=== PATIENT | male | born 1990 | race Caucasian/White ===

== ENCOUNTER 2021-02-20 17:18 | Emergency (ER) | payer OTHER, SELFPAY ==
--- NOTE | ~2021-02-20 | XR_ITS ---
EXAMINATION: XR chest 1V portable DATE: 02/20/2021 17:43 INDICATION: Fever and shortness of breath TECHNIQUE: frontal view of the chest was obtained. COMPARISON: None FINDINGS: Subtle airspace opacity in the right lower lung zone. Mild linear discoid atelectasis at the lateral left lower lung zone. No pulmonary edema, pleural effusion or pneumothorax. The cardiomediastinal paty houette is normal. Visualized bones and soft tissues are unremarkable. IMPRESSION: 1. Opacities in the right lower lung zones suspicious for pneumonia. Reviewed, dictated and finalized at location A. [employer] INST[employer]ER
[2021-02-20 17:29] VITALS: BP 133/80; PULSE 105; RESP 18; TEMP 38.5; O2SAT 95
--- NOTE | 2021-02-20 17:36 | ED.URI ---
HPI - URI/Sore Throat General Chief Complaint: Upper Respiratory Infection Stated Complaint: COVID +, Fever, SOB, Tightness in chest Source: patient Mode of arrival: ambulatory Limitations: no limitations History of Present Illness HPI Narrative: this is a 30-year-old male presents some vaccinated gentleman that is COVID positive initially went to urgent care and was told to come to the emergency department he has a fever of 101, feels like there are some chest tightness with nasal congestion and nonproductive cough with some no abdominal pain no diarrhea constipation. Patient did take ibuprofen prior to coming to the emergency department. MD elicited complaint: fever and nasal congestion Pertinent past history: other ( COVID positive) Onset (ago): day(s) Consistency: constant Severity: mild Exacerbating factors: nothing Relieving factors: nothing Related Data Allergies Allergy/AdvReac Type Severity Reaction Status Date / Time No Known Allergies Allergy Verified 02/20/21 17:28 Review of Systems Review of Systems: All systems reviewed & are unremarkable except as noted in HPI and below PMFSH Past Medical History Medical History Patient denies medical problems Exam Const: General: no acute distress and alert Orientation/consciousness: patient oriented x3 Limitations: altered mental status HENMT: Head: normal to inspection Eyes: Conjunctivae: conjunctivae normal Pupils: Equal, round and reactive pupils present Neck: Neck: normal visual inspection and no lymphadenopathy Chest: Chest palpation & inspection: normal inspection of the chest Resp: Effort & Inspection: normal respiratory effort Cardio: Rate: regular rate Rhythm: regular rhythm GI: GI Palp: Yes Soft to palpation Percussion: Yes normal to percussion Urinary Catheter: Urinary Catheter: patent and draining Skin: General skin exam: normal color Rashes: no rashes Neuro: General: patient oriented x3 Psych: Mental Status: mental status grossly normal Course Course Emergency Course: patient received IV fluids chest x-ray and labs reviewed with patient albuterol puffer was was given patient advised to go home rest drink plenty of fluids Tylenol or Motrin and use inhaler that was prescribed. Vital Signs Vital signs: Vital Signs Temperature 38.5 C H 02/20/21 17:29 Pulse Rate 105 H 02/20/21 17:29 Respiratory Rate 18 02/20/21 17:29 Blood Pressure 133/80 02/20/21 17:29 Pulse Oximetry 95 02/20/21 17:29 Temperature 37.3 C 02/20/21 18:15 Pulse Rate 85 02/20/21 18:15 Respiratory Rate 18 02/20/21 18:15 Blood Pressure 133/80 02/20/21 17:29 Pulse Oximetry 95 02/20/21 18:15 MDM - URI/Sore Throat Lab Data Result diagrams: 02/20/21 17:52 02/20/21 17:52 Labs: Lab Results 02/20/21 02/20/21 Range/Units 17:52 17:52 WBC 4.5 L (4.8-10.8) K/mm3 RBC 4.88 (4.70-6.10) M/mm3 Hgb 14.3 (14.0-18.0) g/dL Hct 42.7 (40.0-54.0) % MCV 87.5 (78.0-102.0) fL MCH 29.3 (27.0-31.0) pg MCHC 33.5 (32.0-36.0) g/dL RDW 12.3 (11.6-14.4) % Plt Count 130 L (150-420) K/mm3 MPV 10.6 (8.7-11.0) fl Immature Gran % (Auto) 0.4 H (0.0-0.0) % Neut % (Auto) 78.8 H (50.0-70.0) % Lymph % (Auto) 16.4 L (18.0-42.0) % [place] % (Auto) 4.4 (2.0-11.0) % Eos % (Auto) 0.0 L (1.0-6.0) % Baso % (Auto) 0.0 (0.0-1.0) % Lymph # (Auto) 0.74 L (1.10-4.50) K/mm3 [place] # (Auto) 0.20 (0.10-0.90) K/mm3 Eos # (Auto) 0.00 L (0.02-0.50) K/mm3 Baso # (Auto) 0.00 (0.00-0.10) K/mm3 Abs Immat Gran (auto) 0.02 H (0.00-0.00) K/mm3 Absolute Neuts (auto) 3.6 (1.7-7.2) K/mm3 Absolute Nucleated RBC 0.00 (0.00-0.00) K/mm3 Nucleated RBC % 0.0 (0-0.0) % % Immature Plt Fraction 2.6 (1.0-7.0) % Sodium 141 (136-145) mmol/L Potassium 3.8 (3.5-5.1) mmol/L Chloride 105 (98-108) mmol/L Carbon Di
[2021-02-20] MEDS: SODIUM CHLORIDE 0.9% IV 1,000 ML 999 ML IV CONT (17:46)
[2021-02-20] MEDS: ACETAMINOPHEN 500 MG TABLET 1000 MG PO (17:46)
[2021-02-20 17:57] LABS: Hematocrit 42.7 % (40.0-54.0); Hemoglobin 14.3 g/dL (14.0-18.0); Immature Granulocyte Absolute 0.02 K/mm3 (0.00-0.00); Immature Granulocyte Percent A 0.4 % (0.0-0.0); Immature Platelet Fraction Pct 2.6 % (1.0-7.0); Lymphocytes Absolute Auto 0.74 K/mm3 (1.10-4.50); Lymphocytes Percent Auto 16.4 % (18.0-42.0); Mean Corpuscular HGB Conc 33.5 g/dL (32.0-36.0); Mean Corpuscular Hemoglobin 29.3 pg (27.0-31.0); Mean Corpuscular Volume 87.5 fL (78.0-102.0); Mean Platelet Volume 10.6 fl (8.7-11.0); Monocytes Percent Auto 4.4 % (2.0-11.0); Neutrophils Absolute Auto 3.6 K/mm3 (1.7-7.2); Neutrophils Percent Auto 78.8 % (50.0-70.0); Platelet Count Result 130 K/mm3 (150-420); Red Blood Count 4.88 M/mm3 (4.70-6.10); Red Cell Distribution Width 12.3 % (11.6-14.4); White Blood Count 4.5 K/mm3 (4.8-10.8)
[2021-02-20 18:10] LABS: Alanine Aminotransferase 60 U/L (16-63); Albumin Level 3.3 g/dL (3.4-5.0); Alkaline Phosphatase 75 U/L (46-116); Anion Gap 7 mmol/L (8-16); Aspartate Amino Transferase 17 U/L (15-37); Bilirubin,Total 0.4 mg/dL (0.00-1.00); Blood Urea Nitrogen 19 mg/dL (7-18); Calcium 8.1 mg/dL (8.5-10.1); Carbon Dioxide 29 mmol/L (21-32); Chloride 105 mmol/L (98-108); Estimated CRCL calculation 110 ml/min; Estimated Glomerular Filt Rate > 60; Glucose 153 mg/dL (70-99); Osmolality Calculated 297 mOsm/kg (285-295); Potassium 3.8 mmol/L (3.5-5.1); Sodium 141 mmol/L (136-145); Total Protein 6.3 g/dL (6.4-8.2)
[2021-02-20] MEDS: ALBUTEROL SULFATE (*SP) INHALER 2 PUFF INHALATION (18:14)
[2021-02-20 18:15] VITALS: PULSE 85; RESP 18; TEMP 37.3; O2SAT 95
[2021-02-20] MEDS: levoFLOXacin 500 MG/D5W 100 ML 500 MG/100 ML BAG 100 MG IVPB (18:35)
[2021-02-20 18:36] VITALS: BP 119/68; PULSE 88; RESP 16; O2SAT 95
--- NOTE | 2021-02-20 19:03 | PC.NURSE ---
Report given to REBECCA Duong
[2021-02-20 19:39] VITALS: BP 113/75; PULSE 85; RESP 17; O2SAT 95
== END 2021-02-20 19:54 | disposition home or self-care (01) ==
PROVIDERS: Emergency Provider Emergency Medicine
DX: U07.1 COVID-19 (principal); J18.9 Pneumonia, unspecified organism
CPT/HCPCS: 36415; 71045; 80053; 85025; 85055; 96361; 96365; 99283; 99284; A9270; J1956; J7030

== ENCOUNTER 2021-02-22 11:15 | Outpatient (CLI) | payer OTHER, SELFPAY ==
--- NOTE | ~2021-02-22 | XR_ITS ---
XR chest 2V DATE: 02/22/2021 11:44 INDICATION: Covid 19 positive for one week. Shortness of breath, cough. Nausea and vomiting. TECHNIQUE: PA and lateral views COMPARISON: 02/20/2021 portable AP chest FINDINGS: Since 02/20/2021 there are patchy infiltrates scattered in the right upper, mid and lower l juliana and left lower lung, likely due to bilateral Covid pneumonia. No pleural effusion or pulmonary vascular congestion or pneumothorax. Normal heart size. Included skeletal structures are unremarkable. IMPRESSION: Patchy bilateral pulmonary infiltrates, right greater than left, new since 02/20/2021, kai ruiz due to Covid pneumonia Reviewed, dictated and finalized at location A. [employer] ADMINSTRATOR IMPRESSION: Patchy bilateral pulmonary infiltrates, right greater than left, ne w since 02/20/2021, likely due to Covid pneumonia
== END 2021-02-22 11:16 | disposition home or self-care (01) ==
LOC: CHSIMG 11:17
PROVIDERS: PCP Nurse Practitioner Family; Visit Provider Nurse Practitioner Family
DX: U07.1 COVID-19 (principal)
CPT/HCPCS: 71046

== ENCOUNTER 2021-02-22 16:56 | Inpatient (IN) | payer OTHER, SELFPAY ==
[2021-02-22] VITALS (7 sets, daily range): BP systolic 123–130; BP diastolic 71–89; PULSE 72–94; RESP 18–22; TEMP 37.1–38; O2SAT 92–96; BMI 31.2
[2021-02-22 17:49] LABS: Hematocrit 44.3 % (40.0-54.0); Hemoglobin 15.2 g/dL (14.0-18.0); Mean Corpuscular HGB Conc 34.3 g/dL (32.0-36.0); Mean Corpuscular Hemoglobin 29.6 pg (27.0-31.0); Mean Corpuscular Volume 86.2 fL (78.0-102.0); Mean Platelet Volume 10.2 fl (8.7-11.0); Platelet Count Result 126 K/mm3 (150-420); Red Blood Count 5.14 M/mm3 (4.70-6.10); Red Cell Distribution Width 12.2 % (11.6-14.4); White Blood Count 3.5 K/mm3 (4.8-10.8)
[2021-02-22 18:04] LABS: Alanine Aminotransferase 59 U/L (16-63); Albumin Level 3.4 g/dL (3.4-5.0); Alkaline Phosphatase 85 U/L (46-116); Anion Gap 7 mmol/L (8-16); Aspartate Amino Transferase 31 U/L (15-37); Bilirubin,Total 0.8 mg/dL (0.00-1.00); Blood Urea Nitrogen 12 mg/dL (7-18); Calcium 8.7 mg/dL (8.5-10.1); Carbon Dioxide 32 mmol/L (21-32); Chloride 97 mmol/L (98-108); Estimated Glomerular Filt Rate > 60; Glucose 126 mg/dL (70-99); Osmolality Calculated 283 mOsm/kg (285-295); Potassium 3.9 mmol/L (3.5-5.1); Sodium 136 mmol/L (136-145); Total Protein 6.8 g/dL (6.4-8.2)
[2021-02-22 18:18] LABS: Base Excess ABG 2.9 mmol/L (0-2); HCO3 ABG 24.2 mmol/L (23-29); Oxygen Content ABG 20.6 %vol (16.0-22.0); Oxygen Saturation ABG 94.4 % (95-97); Oxyhemoglobin 93.6 % (94-100); PCO2 ABG 28.7 mmHg (35-45); PO2 ABG 63.9 mmHg (80-90); Total Hemoglobin 15.7 g/dL (12.0-18.0); pH ABG 7.54 (7.35-7.45)
[2021-02-22 18:21] LABS: Device ROOM AIR; Modified Allen's Test Pass; Site Drawn RIGHT RADIAL
[2021-02-22 18:25] LABS: SARS-CoV-2 RNA PCR Positive (Negative)
[2021-02-22] MEDS: SODIUM CHLORIDE 0.9% IV 500 ML 999 ML IV CONT (18:26)
[2021-02-22] MEDS: ONDANSETRON INJ 4 MG/2 ML VIAL IV PUSH (18:28)
[2021-02-22 18:29] LABS: Band Neutrophils Percent 0 % (0-6); Basophils Percent Manual 0 % (0-1); Eosinophils Percent Manual 0 % (1-6); Lymphocytes Absolute Manual 0.45 K/mm3 (1.1-4.5); Lymphocytes Percent Manual 13 % (18-44); Monocytes Absolute Manual 0.21 K/mm3 (0.1-0.90); Monocytes Percent Manual 6 % (3-9); Neutrophils Absolute Manual 2.83 K/mm3 (1.3-6.7); Neutrophils Percent Manual 81 % (46-73); Platelet Estimate Adequate (Adequate)
[2021-02-22] MEDS: guaiFENesin 12 HR 600 MG TABCR PO (19:37)
--- NOTE | 2021-02-22 20:17 | ED.SOB ---
HPI - SOB/Dyspnea General Chief Complaint: Shortness of Breath/Dyspnea Stated Complaint: COVID +,vomiting Time Seen by Provider: 02/22/21 16:59 Source: patient and RN notes reviewed Mode of arrival: other (see nurses notes.) Limitations: no limitations History of Present Illness MD elicited complaint: shortness of breath and cough Onset (ago): day(s) (2) Timing: constant Severity: mild Exacerbating factors: nothing Relieving factors: oxygen Associated symptoms: denies other symptoms Treatment prior to arrival: oxygen Related Data Allergies Allergy/AdvReac Type Severity Reaction Status Date / Time No Known Allergies Allergy Verified 03/06/21 07:53 Review of Systems Review of Systems: All systems reviewed & are unremarkable except as noted in HPI and below PMFSH Past Medical History Medical History Hydrocele Patient denies medical problems Surgical History Surgical History H/O knee surgery History of tonsillectomy Social History Social History Smoking status: Former smoker Tobacco type: cigarettes Alcohol intake: unknown Substance use: unknown Substance use type: does not use Gender identity (if verbalized by the patient): Male Spiritual care concerns: No Exam Const: General: diaphoretic Orientation/consciousness: patient oriented x3 Limitations: no limitations HENMT: Head: normal to inspection Ears: external ears normal and TM's normal bilaterally General nose exam: Normal external nose present and Normal nares present Mouth: Yes lip normal and Yes moist mucous membranes Teeth and gingiva: dentition normal Throat: posterior oropharynx normal Eyes: Conjunctivae: conjunctivae normal Pupils: Equal, round and reactive pupils present EOM: EOMs intact bilaterally Neck: Neck: normal visual inspection and no lymphadenopathy Chest: Chest palpation & inspection: normal inspection of the chest Resp: Auscultation: rales, rhonchi and wheezes Cardio: Rate: regular rate Rhythm: regular rhythm GI: GI Palp: Yes Soft to palpation and No Tenderness to palpation present (GI) Percussion: Yes normal to percussion Auscultation: normal bowel sounds : General: Yes bladder normal to palpation and Yes no CVA tenderness Male General Exam: Yes normal external exam Back/Spine/Pelvis: Back: no CVA tenderness Skin: General skin exam: normal color Rashes: no rashes Neuro: General: patient oriented x3, moves all extremities, no meningeal signs, no focal motor deficits and CN's II-XI intact bilaterally Extrem: General: normal to inspection and no pedal edema Psych: Mental Status: mental status grossly normal Affect: normal affect Attitude: cooperative Thought content: Yes Normal thought content present Course Course Emergency Course: Pt remained dyspneic in the ED and weas tranferred to a higher level of sare. Reevaluation(s) Date: 02/22/21 Time: 17:54 Vital Signs Vital signs: Vital Signs Temperature 37.2 C 02/22/21 17:29 Pulse Rate 92 02/22/21 17:29 Respiratory Rate 20 02/22/21 17:29 Blood Pressure 130/89 02/22/21 17:29 Pulse Oximetry 93 02/22/21 17:29 Temperature 36.8 C 02/25/21 08:00 Pulse Rate 79 02/25/21 08:00 Respiratory Rate 16 02/25/21 08:00 Blood Pressure 119/65 02/25/21 08:00 Pulse Oximetry 92 02/25/21 08:10 MDM - SOB/Dyspnea Differential Diagnosis Differential diagnosis: Likely acute exacerbation of chronic obstructive airways disease, congestive heart failure and community acquired pneumonia Medical Records Attestation: I reviewed the patient's medical records. Lab Data Attestation: I reviewed the patient's lab results. Result diagrams: 02/25/21 07:39 02/25/21 07:39 Labs: Lab Results 02/22/21 02/22/21 02/22/21 Range/Units 17: 17:21 17
[2021-02-22] MEDS: IBUPROFEN 400 MG TABLET 800 MG PO (21:46)
--- NOTE | 2021-02-22 22:31 | ADMGEN ---
This patient, Magdy Egan, was admitted to 2nd Floor Room 210-2. Patient/family oriented to hospital policies and general routines including ID bracelet, bed and alarms, visiting hours, pain management, procedures, bathroom and other care routines, personal items, smoking policy, room service/diet, and visiting hours. Pt has wallet and phone with him, emesis bags, disposable thermometer and water jug in room Information on how to activate the Rapid Response Team has been discussed. Patient/Family are encouraged to report perceived risks to care and to ask questions if they do not understand what they are told or what they should do.
[2021-02-22] MEDS: SODIUM CHLORIDE 0.9% IV 1,000 ML 100 ML IV CONT (22:33)
[2021-02-22] MEDS: MAG HYDROX/ALUMINUM HYD/SIMETH 30 ML, PHENobarb/HYOSCY/ATROPINE/SCOP 32.4 MG, LIDOCAINE... PO (22:33)
--- NOTE | 2021-02-22 22:43 | PC.NURSE ---
pt reports he could not keep gi cocktail down
[2021-02-23] VITALS (9 sets, daily range): BP systolic 105–118; BP diastolic 56–78; PULSE 65–84; RESP 16–20; TEMP 36.8–38; O2SAT 93–96
--- NOTE | 2021-02-23 00:27 | PC.NURSE ---
Pt whiteboard updated. Pt is in pleasant mood with TV on. This newswriter disposed of an emesis bag for the pt. Fresh water water brought to [place] and the room temperature was lowered per pt request. Call light within reach.
--- NOTE | 2021-02-23 02:04 | PC.NURSE ---
Pt rounding completed. Pt is currently sleeping with the lights off and has his call light within reach.
--- NOTE | 2021-02-23 04:06 | PC.NURSE ---
Pt vitals completed. Pt was a bit drowsy, but in pleasant mood. Magdy had coughed up a bit of brown, blood-tinged phlegm. Pt states he does experience pain ranging from 5 to 6 when coughing, but none at rest. Pt was brought a warm blanket per request. Call light within reach and all lights in room turned off per pt request.
[2021-02-23 05:55] LABS: Hematocrit 42.4 % (40.0-54.0); Hemoglobin 14.7 g/dL (14.0-18.0); Mean Corpuscular HGB Conc 34.7 g/dL (32.0-36.0); Mean Corpuscular Hemoglobin 29.9 pg (27.0-31.0); Mean Corpuscular Volume 86.4 fL (78.0-102.0); Mean Platelet Volume 10.6 fl (8.7-11.0); Platelet Count Result 135 K/mm3 (150-420); Red Blood Count 4.91 M/mm3 (4.70-6.10); Red Cell Distribution Width 12.2 % (11.6-14.4); White Blood Count 2.8 K/mm3 (4.8-10.8)
[2021-02-23 06:09] LABS: Alanine Aminotransferase 54 U/L (16-63); Alkaline Phosphatase 75 U/L (46-116); Anion Gap 8 mmol/L (8-16); Aspartate Amino Transferase 31 U/L (15-37); Bilirubin,Total 0.5 mg/dL (0.00-1.00); Blood Urea Nitrogen 13 mg/dL (7-18); Calcium 8.3 mg/dL (8.5-10.1); Carbon Dioxide 30 mmol/L (21-32); Chloride 101 mmol/L (98-108); Estimated CRCL calculation 107 ml/min; Estimated Glomerular Filt Rate > 60; Glucose 96 mg/dL (70-99); Osmolality Calculated 288 mOsm/kg (285-295); Potassium 3.6 mmol/L (3.5-5.1); Sodium 139 mmol/L (136-145); Total Protein 6.3 g/dL (6.4-8.2)
[2021-02-23] MEDS: ALBUTEROL SULFATE (*SP) INHALER 2 PUFF INHALATION ×4 (06:30→20:30)
[2021-02-23] MEDS: UMECLIDINIUM BROMIDE 62.5 MCG ELLIPTA 1 PUFF INHALATION ×2 (06:32→19:29)
--- NOTE | 2021-02-23 06:42 | PC.NURSE ---
Pt educated on use of a spacer when used with an inhaler. Magdy was also educated on rinsing his mouth after a steroid inhaler use to prevent thrush. Pt verbalized understanding and demonstrated use with the spacer. Call light within reach.
[2021-02-23 06:43] LABS: Band Neutrophils Percent 0 % (0-6); Lymphocytes Absolute Manual 1.45 K/mm3 (1.1-4.5); Lymphocytes Percent Manual 52 % (18-44); Monocytes Absolute Manual 0.22 K/mm3 (0.1-0.90); Monocytes Percent Manual 8 % (3-9); Neutrophils Absolute Manual 1.12 K/mm3 (1.3-6.7); Neutrophils Percent Manual 40 % (46-73); Total Cells Counted 100
[2021-02-23 06:44] LABS: Platelet Estimate Adequate (Adequate)
--- NOTE | 2021-02-23 07:53 | PM.IMHP ---
H&P: HPI History of Present Illness Date/Time: 02/23/21 07:53 this is a 30 year old male who presented to our emergency department after going to his primary care physician's office for IM treatment with Rocephin. Patient does not have any significant past medical history. According to patient he tested positive for COVID pneumonia on 02/13/2021 . his situation worsen he came to our emergency department on 02/20/2021 and was prescribed Levaquin for COVID pneumonia,,which he was unable to keep down due to nausea vomiting. he then went to an urgent care and was prescribed doxycycline he was also unable to keep that down. afterwards he started seeing Samreen ELECTRIC TRAIN DRIVER who gave him Rocephin 1 mg IM and advised him to proceed to emergency department. this patient has not been vaccinated. chest x-ray indicate worsening COVID pneumonia, WBC is 2.8 hemoglobin 14.7, hematocrit 42.4, platelets 135, ABG pH 7.54 CO2 38.7, O2 63.9 O2 saturation 94 %, sodium 139, potassium 3.6, BUN 13 creatinine 1.00, glucose 96, liver function tests within normal limits, COVID positive. patient continues to complain of a uncontrollable cough that is blood tinged and shortness of breath. Patient informed that he will be treated for pneumonia with antibiotic, remdesivir and dexamethasone. Patient notes that he read negative side effects on remdesivir but was unable to tell me what the negative side effects were or where he obtained his resource. Patient was informed that he can refuse any treatment and he has refused remdesivir. patient is requesting monoclonal antibiotic therapy. it was explained to the patient that he would only qualify for 1 day and if he did qualify he would have to be discharged and go as outpatient. I also explained to patient that I will not be able to discharge him due to his worsening chest x-ray with Covid pneumonia and his inability to keep down antibiotics.. At that time patient requested to speak with someone else that could help him get that treatment. at that time I informed him that we can get someone to speak with him but there are rules and regulation and protocols that must be followed and that there is no way to get around government rules and regulations. patient at that time told me that this is bureaucracy and he would fund it his self. I informed him once again that that would not be possible. I informed him at that time that his biggest concern is to treat the pneumonia and we could treat him with antibiotics alone for his pneumonia. I informed him that people test positive for COVID often without treatment and his biggest concern is treatment of his pneumonia. patient finally agree for antibiotic treatment for pneumonia. Patient denies cp, palpitation, diarrhea, constipation, lightheadness, headache, dizziness or chills and fevers. remain for a couple days of IV antibiotic therapy due to failed outpatient therapy observation time spend 60 min Chief Complaint: shortness of breath, nausea vomiting Review of Systems Review of Systems: A 14 organ system Review of Systems was performed and pertinent positives included in the HPI, otherwise PMFSH Past Medical History Medical History Hydrocele Patient denies medical problems Surgical History Surgical History H/O knee surgery History of tonsillectomy Social History Social History Smoking status: Former smoker Tobacco type: cigarettes Alcohol intake: unknown Substance use: unknown Substance use type: does not use Gender identity (if verbalized by the patient): Male Spiritual care concerns: No Meds Home Medications and Allergies Home Medications Medication Instructions Recorded Confirmed Type dexamethasone 6 mg tablet 6 mg PO DAILY 10 Days #10 tablet 02/22/21 02/22/21 Rx doxycycline monohydrate 100
[2021-02-23 08:24] LABS: INR 1.1; Prothrombin Time 11.5 Seconds (9.50-12.10)
[2021-02-23] MEDS: BENZONATATE 100 MG CAPSULE 200 MG PO ×3 (08:31→17:18)
[2021-02-23] MEDS: guaiFENesin 12 HR 600 MG TABCR PO ×2 (08:31→21:12)
[2021-02-23] MEDS: PANTOPRAZOLE 40 MG TABLET PO (08:32)
[2021-02-23] MEDS: DEXAMETHASONE SOD PHOS INJ 4 MG/ML VIAL 6 MG IV PUSH (08:32)
[2021-02-23] MEDS: SODIUM CHLORIDE 0.9% IV 1,000 ML 100 ML IV CONT (08:40)
[2021-02-23] MEDS: ONDANSETRON INJ 4 MG/2 ML VIAL IV PUSH (08:58)
[2021-02-23] MEDS: ENOXAPARIN 30 MG/0.3 ML SYRINGE SUB-Q ×2 (09:26→21:12)
--- NOTE | 2021-02-23 12:10 | PC.NURSE ---
Patient discharged from observation status and admitted as inpatient.
[2021-02-23] MEDS: ACETAMINOPHEN 325 MG TABLET 650 MG PO ×2 (13:52→21:30)
--- NOTE | 2021-02-23 19:10 | PC.NURSE ---
Completed change of shift report. Patient stated that he was not in any real pain, but has some discomfort when he coughs or becomes short of breath. Patient's fluid was ready to be changed, but patient requested that the fluid be stopped, as he was now able to drink and keep things down. He feels as if he is getting too much fluid, and does not need any more. was contacted, and continuous fluid was discontinued. Patient did not need anything else at this time.
--- NOTE | 2021-02-23 19:20 | PC.NURSE ---
notified that patient is refusing IV fluids. Patient states he is drinking and no N/V. New order to D/C fluids.
[2021-02-23] MEDS: traZODone HCL 50 MG TABLET PO (21:32)
--- NOTE | 2021-02-23 23:05 | PC.NURSE ---
Completed patient rounding. Patient is sleeping comfortably in bed, with no signs of pain or discomfort.
[2021-02-24] VITALS (9 sets, daily range): BP systolic 110–121; BP diastolic 58–69; PULSE 73–94; RESP 16–20; TEMP 36.9–39.2; O2SAT 91–96
--- NOTE | 2021-02-24 00:30 | PC.NURSE ---
Patient is still very restless, and has set off the bed alarm several times, while moving in the bed. During a check after the bed alarm went off, noted that blood was on the pillow patient's IV arm was resting on. Visual inspection found the IV pulled out of the arm, with the straight board still intact. Patient's IV was changed.
--- NOTE | 2021-02-24 02:17 | PC.NURSE ---
Patient rounding completed. Patient is sleeping comfortably in bed, with no signs of pain or discomfort.
[2021-02-24] MEDS: ACETAMINOPHEN 325 MG TABLET 650 MG PO ×2 (03:35→17:06)
[2021-02-24] MEDS: ONDANSETRON INJ 4 MG/2 ML VIAL IV PUSH ×3 (03:45→17:08)
[2021-02-24] MEDS: HYDROcodone/acetaminophen (*CRX) 5-325 MG TABLET 1 TAB PO (04:55)
[2021-02-24 05:34] LABS: Hematocrit 38.8 % (40.0-54.0); Hemoglobin 13.1 g/dL (14.0-18.0); Immature Platelet Fraction Pct 2.9 % (1.0-7.0); Mean Corpuscular HGB Conc 33.8 g/dL (32.0-36.0); Mean Corpuscular Hemoglobin 29.2 pg (27.0-31.0); Mean Corpuscular Volume 86.6 fL (78.0-102.0); Mean Platelet Volume 10.1 fl (8.7-11.0); Platelet Count Result 135 K/mm3 (150-420); Red Blood Count 4.48 M/mm3 (4.70-6.10); Red Cell Distribution Width 12.3 % (11.6-14.4); White Blood Count 5.1 K/mm3 (4.8-10.8)
[2021-02-24 05:51] LABS: Lactic Acid Reflex 1.8 mmol/L (0.4-2.0)
[2021-02-24 05:57] LABS: Alanine Aminotransferase 70 U/L (16-63); Albumin Level 2.8 g/dL (3.4-5.0); Alkaline Phosphatase 62 U/L (46-116); Anion Gap 10 mmol/L (8-16); Aspartate Amino Transferase 46 U/L (15-37); Bilirubin,Total 0.4 mg/dL (0.00-1.00); Blood Urea Nitrogen 8 mg/dL (7-18); CRP 2.1 mg/dL (0.0-0.9); Carbon Dioxide 27 mmol/L (21-32); Chloride 102 mmol/L (98-108); Estimated CRCL calculation 111 ml/min; Estimated Glomerular Filt Rate > 60; Glucose 115 mg/dL (70-99); Osmolality Calculated 287 mOsm/kg (285-295); Potassium 3.2 mmol/L (3.5-5.1); Sodium 139 mmol/L (136-145); Total Protein 5.8 g/dL (6.4-8.2)
[2021-02-24] MEDS: ALBUTEROL SULFATE (*SP) INHALER 2 PUFF INHALATION ×4 (06:22→20:50)
[2021-02-24] MEDS: UMECLIDINIUM BROMIDE 62.5 MCG ELLIPTA 1 PUFF INHALATION ×2 (06:22→18:20)
--- NOTE | 2021-02-24 06:31 | PC.NURSE ---
Patient slept from 2100 to about 0030. When he woke up, he stated that he felt like he was having a fever. Patient's temperature was 102.5. He was given tylenol for his fever, but not long after he took the tylenol, he threw up a small amount. He did not think he threw up the tylenol. However, when his fever was rechecked at 0130, he was at 102.2. Patient was not able to take any tylenol, as it had only been an hour since the last dose. He was having pain of 4/10 due to the fever and body aches, so he was given Williams 5-325. His pain was gone when it was rechecked, and his temperature was down to 101.2.
[2021-02-24] MEDS: ENOXAPARIN 30 MG/0.3 ML SYRINGE SUB-Q ×2 (08:45→21:52)
[2021-02-24] MEDS: guaiFENesin 12 HR 600 MG TABCR PO ×2 (08:46→21:50)
[2021-02-24] MEDS: BENZONATATE 100 MG CAPSULE 200 MG PO ×3 (08:46→16:57)
[2021-02-24] MEDS: PANTOPRAZOLE 40 MG TABLET PO (08:46)
[2021-02-24] MEDS: POTASSIUM CHLORIDE 20 MEQ TABLET 40 MEQ PO (08:46)
[2021-02-24] MEDS: AZITHROMYCIN 250 MG TABLET 500 MG PO (08:47)
[2021-02-24] MEDS: DEXAMETHASONE SOD PHOS INJ 4 MG/ML VIAL 6 MG IV PUSH (08:51)
--- NOTE | 2021-02-24 13:39 | WPDPN ---
Progress Note: A&P Assessment and Plan (1) Community acquired pneumonia: Code(s): J18.9 - Pneumonia, unspecified organism <ISABEL Dwyer-C - Last Filed: 02/24/21 13:42> Status: Acute <ISABEL Dwyer-C - Last Filed: 02/24/21 13:42> Assessment and Plan: continue Rocephin, Tessalon Perles, guaifenesin repeat chest x-ray indicates worsening pneumonia lactic acid pending blood culture pending patient with temperature of 102.5?> 102.2> 101.2> 100.7, trending down <ISABEL Dwyer-C - Last Filed: 02/24/21 13:42> (2) COVID-19: Code(s): U07.1 - COVID-19 <ISABEL Dwyer-C - Last Filed: 02/24/21 13:42> Status: Acute <ISABEL Dwyer-C - Last Filed: 02/24/21 13:42> Assessment and Plan: patient refused remdesivir will continue dexamethasone patient requesting monoclonal antibiotic treatment. patient informed that he does not meet the criteria for treatment anticoagulant based COVID protocol <ISABEL Dwyer-C - Last Filed: 02/24/21 13:42> (3) Gastroenteritis: Code(s): K52.9 - Noninfective gastroenteritis and colitis, unspecified <ISABEL Dwyer-C - Last Filed: 02/24/21 13:42> Status: Acute <ISABEL Dwyer-C - Last Filed: 02/24/21 13:42> Assessment and Plan: continue Zofran possibly secondary to antibiotic treatment <ISABEL Dwyer-C - Last Filed: 02/24/21 13:42> Subjective Date/time seen: 02/24/21 13:39 patient continues to complain of shortness of breath, fevers, headache and nausea and vomiting. according to patient his temperature did not improve because he vomited after taking his Tylenol. Patient is requesting for visitors I informed him that I will notify nursing staff and they will address visitation. patient does not appear to any distress and he has no complaints at this time will continue to treat patient and discharge once he is free of fever for 24 hours. Patient denies cp, , palpitation, diarrhea, constipation, lightheadness, dizziness or chills and fevers. <JUAN MANUEL Dwyer - Last Filed: 02/24/21 13:42> Review of Systems Review of Systems: A 14 organ system Review of Systems was performed and pertinent positives included in the HPI, otherwise <JUAN MANUEL Dwyer - Last Filed: 02/24/21 13:42> Exam Narrative: GENERAL: This is a well-nourished, well-developed patient, in no apparent distress. HEAD: normocephalic, atraumatic. EYES: PERRL. Sclera clear/white. Vision is grossly intact. EARS: External ears normal, auditory canals clear and without drainage, TMs normal without perforation. Hearing grossly intact. NOSE: External nose normal with no obvious nasal discharge, nares without redness, no rhinorrhea. THROAT: Mucous membranes moist, posterior pharynx clear. NECK: Neck supple, non-tender without lymphadenopathy, masses or thyromegaly. CARDIOVASCULAR: Regular rate and rhythm without murmurs, gallops, or rubs. RESPIRATORY: Clear to auscultation. Breath sounds equal bilaterally. No wheezes, rales, or rhonchi. GASTROINTESTINAL: Abdomen soft, non-tender, nondistended. Bowel sounds are active. No hepato-splenomegaly, or palpable masses. No guarding. SKIN: warm, intact with no suspicious lesions or rash, good texture and turgor. NEURO: awake, alert, and oriented to person, place and time. There were no obvious focal neurologic abnormalities. Steady gait EXTREMITIES: Normal range of motion. No edema. No calf tenderness. Negative Homans sign bilaterally. BACK: Nontender without deformity or crepitance. No flank tenderness. <JUAN MANUEL Dwyer - Last Filed: 02/24/21 13:42> Objective Data Vital Signs Vital Signs: Vital Signs - 24 hr 02/23/21 13:52 02/23/21 14:58 02/23/21 16:00 Temperature 100.4 F H 98.6 F 99.8 F H Pulse Rate 84 Respiratory Rate 20 Blood Pressure 112/78 Pulse Oximetry 96
--- NOTE | 2021-02-24 16:47 | PC.NURSE ---
notified of pt's request to speak with him
[2021-02-24] MEDS: traZODone HCL 50 MG TABLET PO (22:10)
--- NOTE | 2021-02-25 02:24 | PC.NURSE ---
Pt rounding completed. Pt was sleeping upon entering the room and the door had woken him up. Pt denied having any needs at this time and stated he was going to get up. Call light is within reach and pt is not having nausea at this time.
[2021-02-25] MEDS: UMECLIDINIUM BROMIDE 62.5 MCG ELLIPTA 1 PUFF INHALATION (06:11)
[2021-02-25] MEDS: ALBUTEROL SULFATE (*SP) INHALER 2 PUFF INHALATION ×2 (06:11→10:30)
--- NOTE | 2021-02-25 07:58 | PM.DS ---
DS: Admitting Diagnosis Discharge Date 02/25/2021 <JUAN MANUEL Dwyer - Last Filed: 02/25/21 12:21> Admitting Diagnosis covid pna <JUAN MANUEL Dwyer - Last Filed: 02/25/21 12:21> DS: Discharge Diagnosis Discharge Diagnosis (1) Community acquired pneumonia: Code(s): J18.9 - Pneumonia, unspecified organism <JUAN MANUEL Dwyer - Last Filed: 02/25/21 12:21> Status: Acute <JUAN MANUEL Dwyer - Last Filed: 02/25/21 12:21> Assessment and Plan: continue Rocephin, Tessalon Perles, guaifenesin repeat chest x-ray indicates worsening pneumonia lactic acid pending blood culture pending patient with temperature of 102.5?> 102.2> 101.2> 100.7, trending down. Today day of discharge patient is afebrile Discharge Blood culture preliminary no growth Pneumonia viral, patient will not go home with any antibiotics <JUAN MANUEL Dwyer - Last Filed: 02/25/21 12:21> (2) COVID-19: Code(s): U07.1 - COVID-19 <JUAN MANUEL Dwyer - Last Filed: 02/25/21 12:21> Status: Acute <JUAN MANUEL Dwyer - Last Filed: 02/25/21 12:21> Assessment and Plan: patient refused remdesivir will continue dexamethasone patient requesting monoclonal antibiotic treatment. patient informed that he does not meet the criteria for treatment anticoagulant based COVID protocol <JUAN MANUEL Dwyer - Last Filed: 02/25/21 12:21> (3) Gastroenteritis: Code(s): K52.9 - Noninfective gastroenteritis and colitis, unspecified <JUAN MANUEL Dwyer - Last Filed: 02/25/21 12:21> Status: Acute <JUAN MANUEL Dwyer - Last Filed: 02/25/21 12:21> Assessment and Plan: continue Zofran possibly secondary to antibiotic treatment Discharge Resolved <JUAN MANUEL Dwyer - Last Filed: 02/25/21 12:21> DS: Summary Hospital Course Hospital Course: this is a 30 year old male who presented to our emergency department after going to his primary care physician's office for IM treatment with Rocephin. Patient does not have any significant past medical history. According to patient he tested positive for COVID pneumonia on 02/13/2021 . his situation worsen he came to our emergency department on 02/20/2021 and was prescribed Levaquin for COVID pneumonia,,which he was unable to keep down due to nausea vomiting. he then went to an urgent care and was prescribed doxycycline he was also unable to keep that down. afterwards he started seeing [facility] AND LETTER PASTER who gave him Rocephin 1 mg IM and advised him to proceed to emergency department. this patient has not been vaccinated. chest x-ray indicate worsening COVID pneumonia. This hospital stay patient became febrile and remain as an inpatient. Today patient is afebrile and will discharge home. He still complains of shortness of breath but sats are above 90%. I explained to patient that he has Covid long-haul and it may take a while before his symptoms resolve. Patient was informed that he can take the vaccine 90 days post positive Covid test. He will be sent home with medications to treat his symptoms. He was also informed that his pneumonia is more than likely viral since there was no growth in his blood culture. He will not go home with any antibiotics. Patient agrees with discharge. The patient denies , CP, palpitation, extremity numbness, lightheadedness, dizziness, constipation, diarrhea, chills, or fever. Time spent 60 minutes <JUAN MANUEL Dwyer - Last Filed: 02/25/21 12:21> I examined the Prieb Jignesh was admitted for pneumonia /COVID. He was treated with Rocephin and Zithromax. The patient is hemodynamically stable [facility]. His oxygenation is stable without any supplemental oxygen. Would discontinue steroids as they are not indicated since the patient has not been hypoxic. Advised follow-up with his primary care physician. <Natalio Doshi MD - Last
[2021-02-25 08:00] VITALS: BP 119/65; PULSE 79; RESP 16; TEMP 36.8; O2SAT 92
[2021-02-25 08:10] VITALS: O2SAT 92
[2021-02-25 08:31] LABS: Hematocrit 40.2 % (40.0-54.0); Hemoglobin 13.8 g/dL (14.0-18.0); Mean Corpuscular HGB Conc 34.3 g/dL (32.0-36.0); Mean Corpuscular Hemoglobin 29.9 pg (27.0-31.0); Mean Corpuscular Volume 87.2 fL (78.0-102.0); Mean Platelet Volume 10.5 fl (8.7-11.0); Platelet Count Result 150 K/mm3 (150-420); Red Blood Count 4.61 M/mm3 (4.70-6.10); Red Cell Distribution Width 12.5 % (11.6-14.4); White Blood Count 4.5 K/mm3 (4.8-10.8)
[2021-02-25 08:45] LABS: Anion Gap 6 mmol/L (8-16); Blood Urea Nitrogen 9 mg/dL (7-18); Calcium 8.6 mg/dL (8.5-10.1); Carbon Dioxide 31 mmol/L (21-32); Chloride 101 mmol/L (98-108); Estimated CRCL calculation 121 ml/min; Estimated Glomerular Filt Rate > 60; Glucose 105 mg/dL (70-99); Osmolality Calculated 284 mOsm/kg (285-295); Potassium 3.6 mmol/L (3.5-5.1); Sodium 138 mmol/L (136-145)
[2021-02-25] MEDS: POTASSIUM CHLORIDE 20 MEQ TABLET 40 MEQ PO (09:18)
[2021-02-25] MEDS: BENZONATATE 100 MG CAPSULE 200 MG PO (09:18)
[2021-02-25] MEDS: ENOXAPARIN 30 MG/0.3 ML SYRINGE SUB-Q (09:18)
[2021-02-25] MEDS: PANTOPRAZOLE 40 MG TABLET PO (09:19)
[2021-02-25] MEDS: guaiFENesin 12 HR 600 MG TABCR PO (09:19)
[2021-02-25] MEDS: DEXAMETHASONE SOD PHOS INJ 4 MG/ML VIAL 6 MG IV PUSH (09:19)
[2021-02-25] MEDS: BENZONATATE 100 MG CAPSULE (09:30)
--- NOTE | 2021-02-27 12:39 | PC.NURSE ---
Pt states he received and understood his discharge instructions. He also stated I had great service .
== END 2021-02-25 13:20 | disposition home or self-care (01) | DRG 177 ==
LOC: CHSED 20:22 → CHS2ND 21:07
PROVIDERS: Nurse Practitioner; Admitting Provider Emergency Medicine; Emergency Provider Emergency Medicine; PCP Nurse Practitioner Family; Visit Provider Emergency Medicine
DX: U07.1 COVID-19 (principal); J12.82 Pneumonia due to coronavirus disease 2019; K52.9 Noninfective gastroenteritis and colitis, unspecified; Z87.891 Personal history of nicotine dependence
CPT/HCPCS: 36415; 36600; 71045; 71046; 80048; 80053; 82805; 83605; 83735; 85025; 85027; 85055; 85610; 86140; 87040; 96361; 96365; 96372; 96374; 96375; 99283; 99284; 99285; A9270; C9803; G0378; J0696; J1100; J1650; J1956; J2405; J7030; J7040; U0003; U0005

== ENCOUNTER 2022-07-03 09:15 | Outpatient (CLI) | payer OTHER, SELFPAY ==
--- NOTE | ~2022-07-03 | CT_ITS ---
Clinical Indication: Dyspnea CT Scan of the Chest with Contrast: Technique: Contiguous sections were acquired throughout the chest after intravenous administration of 100 cc of Omnipaque 350. Dose reduction technique was used on this scan by utilizing automated expos ure control and iterative reconstruction technique. The dose-length product (DLP) was 582.09 mGy-cm. Findings: There is no evidence of any significant mediastinal, hilar or axillary lymphadenopathy. There is no f illing defect in the pulmonary arterial tree to suggest pulmonary embolus. There is no evidence of ao rtic dissection or aneurysm. There is no evidence of pleural or pericardial effusion. The lungs are clear, aside from calcified right middle lobe granuloma. Images through the upper abdomen reveal no abnormalities. Impression: No evidence of pulmonary embolus, aortic dissection, or aortic aneurysm. No significant pulmonary abnormality. Reviewed, dictated and finalized at [facility]. Impression: No evidence of pulmonary embolus, aortic dissection, or aortic aneurysm. No significant pulmonary abnormality.
== END 2022-07-03 09:16 | disposition home or self-care (01) ==
PROVIDERS: PCP Physician Assistant; Visit Provider Physician Assistant
DX: R06.02 Shortness of breath (principal)
CPT/HCPCS: 71275; Q9967

== ENCOUNTER 2024-02-24 13:20 | Outpatient (CLI) | payer OTHER, SELFPAY ==
--- NOTE | ~2024-02-24 | CT_ITS ---
EXAMINATION: CT sinus wo con DATE: 02/24/2024 13:33 INDICATION: Chronic sinusitis. TECHNIQUE: Computed tomography (CT) of the paranasal sinuses was performed without intravenous contra st. Iterative reconstruction technique was employed. The dose-length product was 267.62 mGy-cm. COMPARISON: None FINDINGS: There is mild mucosal thickening in right frontal sinus and the bilateral ethmoid sinuses. There is mild mucosal thickening in left sphenoid sinus and the maxillary sinuses. There is leftward deviation of the nasal septum. The ostiomeatal units are patent. IMPRESSION: 1. Mild mucosal thickening in the paranasal sinuses. 2. Leftward deviation of the nasal septum. Reviewed, dictated and finalized at location A. 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
== END 2024-02-24 13:21 | disposition home or self-care (01) ==
PROVIDERS: PCP Otolaryngology; Visit Provider Physician Assistant
DX: J32.9 Chronic sinusitis, unspecified (principal); J34.2 Deviated nasal septum; J34.89 Other specified disorders of nose and nasal sinuses
CPT/HCPCS: 70486

== ENCOUNTER 2024-04-23 20:23 | Inpatient (IN) | payer OTHER, SELFPAY ==
--- NOTE | ~2024-04-23 | XR_ITS ---
EXAMINATION: XR chest 2V 04/23/2024 20:50 INDICATION: Dyspnea. Cough. Fever. PROCEDURE: 2 view chest COMPARISON: 02/22/2021 FINDINGS: The lungs are clear. The cardiomediastinal silhouette is within normal limits. There are no pleural effusions. There is no pneumothorax suspected. IMPRESSION: 1: NO ACUTE CARDIOPULMONARY DISEASE. Reviewed, dictated and finalized at location A. E MAN
--- NOTE | ~2024-04-23 | CT_ITS ---
EXAMINATION: CT diagnostic chest wo con DATE: 04/23/2024 22:46 INDICATION: Fever and cough. TECHNIQUE: Computed tomography (CT) of the chest was performed without intravenous contrast. The dose -length product was 483.14 mGy-cm. Automated exposure control and iterative reconstruction technique were employed. COMPARISON: Chest x-ray dated 04/23/[address] dated 07/03/2022 FINDINGS: Upper abdomen is unremarkable. No thoracic lymphadenopathy. No significant vascular abnorma lity. Heart size normal. There are reticulonodular densities with interspersed groundglass opacificat ion in the left upper lobe, consistent with pneumonia. No endobronchial lesions. No acute osseous abn ormality. IMPRESSION: 1. Left upper lobe pneumonia. Reviewed, dictated and finalized at location A. 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
[2024-04-23 20:28] VITALS: BP 125/85; PULSE 129; RESP 18; TEMP 37.9; O2SAT 95
[2024-04-23 21:13] LABS: Influenza A QL RT-PCR Negative (Negative); Influenza B QL RT-PCR Negative (Negative); RSV RNA, RT-PCR Negative (Negative); SARS-CoV-2 RNA PCR Negative (Negative)
[2024-04-23 21:59] LABS: Basophils Percent Auto 0.3 % (0.2-1.2); Hemoglobin 15.9 g/dL (14.0-18.0); Immature Granulocyte Absolute 0.05 K/mm3 (0.00-0.031); Immature Granulocyte Percent A 0.3 % (0-0.5); Lymphocytes Absolute Auto 1.07 K/mm3 (0.9-3.2); Mean Corpuscular HGB Conc 34.6 g/dl (32-36); Mean Corpuscular Hemoglobin 29.4 pg (26-34); Mean Corpuscular Volume 85.2 fl (80-100); Mean Platelet Volume 10.2 fl (7.4-10.4); Monocytes Absolute Auto 0.7 K/mm3 (0.1-0.6); Monocytes Percent Auto 4.4 % (2.6-8.5); Neutrophils Absolute Auto 13.5 K/mm3 (1.3-6.7); Platelet Count Result 223 k/mm3 (150-375); Red Cell Distribution Width 12.6 % (11.5-14.5); White Blood Count 15.3 K/mm3 (4.5-10.0)
[2024-04-23] MEDS: SODIUM CHLORIDE 0.9% IV 1,000 ML 999 ML IV CONT (22:04)
[2024-04-23] MEDS: ACETAMINOPHEN 325 MG TABLET 650 MG PO (22:04)
[2024-04-23 22:10] VITALS: RESP 15; O2SAT 95
--- NOTE | 2024-04-23 22:36 | ED.FEVER ---
HPI - Fever General Chief Complaint: Fever Stated Complaint: fever Time Seen by Provider: 04/23/24 21:10 Source: patient Mode of arrival: ambulatory Limitations: no limitations History of Present Illness HPI Narrative: This is a 33-year-old male that presents to the emergency department for fevers. Reports he had a colonoscopy today. He was told he aspirated during the procedure. Tonight he started to develop fever, cough, shortness of breath. Related Data Home Medications ?Medication ?Instructions ?Recorded ?Confirmed ?Last Taken ?Type famotidine 20 mg tablet (Acid 20 mg PO BID 04/09/24 04/23/24 04/22/24 History Controller) Allergies Allergy/AdvReac Type Severity Reaction Status Date / Time No Known Allergies Allergy Verified 04/23/24 20:24 Review of Systems Review of Systems: CONSTITUTIONAL: Reports fever RESPIRATORY: Reports cough and dyspnea. All systems reviewed & are unremarkable except as noted in HPI and below PMFSH Past Medical History Medical History (Updated 04/24/24 @ 00:17 by Jacqueline Khan PA-C) Colon polyp Pneumonia due to COVID-19 virus Post-COVID syndrome COVID-19 Community acquired pneumonia Hydrocele Surgical History Surgical History History of tonsillectomy H/O knee surgery Social History Social History Smoking status: Former smoker Tobacco type: cigarettes Alcohol intake: never Substance use: never Substance use type: does not use Living arrangements: with family Gender identity (if verbalized by the patient): Male Spiritual care concerns: No Exam Narrative: GENERAL: Well-appearing, well-nourished, and in no acute distress. HEAD: Normocephalic, atraumatic. EYES: EOMI. CHEST: No respiratory distress. Diffuse expiratory wheezing. No rales or rhonchi HEART: Regular rate and rhythm. No murmur heard. Normal peripheral pulses. EXTREMITIES: Normal range of motion. No edema. SKIN: Warm, dry, no rash. NEURO: No focal deficits. Alert and oriented x3. PSYCH: Normal mood and affect Course Consultations Consultation #1: Spoke with hospitalist about patient and workup who accepts admission Date: 04/24/24 Vital Signs Vital signs: Vital Signs Temperature 100.2 F H 04/23/24 20:28 Pulse Rate 129 H 04/23/24 20:28 Respiratory Rate 18 04/23/24 20:28 Blood Pressure 125/85 04/23/24 20:28 Pulse Oximetry 95 04/23/24 20:28 Oxygen Delivery Room Air 04/23/24 20:28 Temperature 100.2 F H 04/23/24 20:28 Pulse Rate 108 H 04/23/24 23:14 Respiratory Rate 18 04/23/24 23:14 Blood Pressure 120/82 04/23/24 23:09 Pulse Oximetry 97 04/24/24 00:14 Oxygen Delivery Nasal Cannula 04/24/24 00:14 Oxygen Flow Rate 2 04/24/24 00:14 MDM - Fever MDM Narrative Medical decision making narrative: Patient presents to the emergency department for fever, cough, shortness of breath. Had a colonoscopy today and reportedly aspirated during the procedure. Febrile and tachycardic upon arrival. Diffuse wheezing. This is responded nebulizer treatment. CBC with leukocytosis to 15.3. Influenza, RSV and COVID screens are negative. Chest x-ray without acute cardiopulmonary abnormality. CT chest does show left upper lobe pneumonia. Patient had oxygen desaturation into the upper 80s, placed on 2 L nasal cannula. Patient and family updated on his workup and need for admission. Spoke with hospitalist about patient and workup who accepts admission Differential Diagnosis Differential diagnosis: Likely cellulitis, fever of unknown origin, community acquired pneumonia, viral infection, influenza and other (covid) Lab Data Attestation: I reviewed the patient's lab results. 04/23/24 21:54 04/23/24 21:54 Labs: Lab Results 04/23/24 04/23/24 04/23/24 Range/Units 20:33 21:54 23:08 WBC 15.3 H (4.5-10.0) K/mm3 RBC 5.40 (4.6-6.20) M/mm3 Hgb 15.9 (14.0-18.0) g/dL Hct 46.0 (42.0-52.0) % MCV 85.2 (80-100) fl MCH 29.4 (26-34) pg MCHC 34.6 (32-36) g/dl RDW 12.6 (11.5-14.5) % Plt Count 223 (150-375) k/mm3 MPV 10.2 (7.4-10.4) fl Immature Gran % (Auto) 0.3 (0-0.5) % Neut % (Auto) 88.0 H (45.5-73.1) % Lymph % (Auto) 7.0 L (18.3-44.2) % [place] % (Auto) 4.4 (2.6-8.5) % Eos % (Auto) 0.0 (0-4.4) % Baso % (Auto) 0.3 (0.2-1.2) % Lymph # (Auto) 1.07 (0.9-3.2) K/mm3 [place] # (Auto) 0.7 H (0.1-0.6) K/mm3 Eos # (Auto) 0.0 (0-0.3) K/mm3 Baso # (Auto) 0.0 (0.0-0.1) K/mm3 Abs Immat Gran (auto) 0.05 H (0.00-0.031) K/mm3 Absolute Neuts (auto) 13.5 H (1.3-6.7) K/mm3 Absolute Nucleated RBC 0.000 (0.0-0.012) K/mm3 Nucleated RBC % 0.0 (0.0-0.2) % Sodium 137 (137-145) mmol/L Potassium 4.4 (3.4-5.0) mmol/L Chloride 102 (98-107) mmol/L Carbon Dioxide 26 (22-30) mmol/L Anion Gap 9 (4-12) mmol/L BUN 14 (9-20) mg/dL Creatinine 0.96 (0.7-1.3) mg/dL Estim Creat Clear Calc 115 ml/min Estimated GFR > 60 (59 - ) Glucose 114 H (65-110) mg/dL Lactic Acid 0.9 (0.7-2.0) mmol/L Calcium 9.4 (8.4-10.2) mg/dL Total Bilirubin 1.0 (0.2-1.3) mg/dL AST 23 (17-59) U/L ALT 26 (6-50) U/L Alkaline Phosphatase 62 (38-126) U/L Total Protein 7.0 (6.3-8.2) g/dL Albumin 4.6 (3.5-5.1) g/dL Urine Color (Yellow) Urine Appearance (Clear) Urine pH (5.0-9.0) Ur Specific [place] (1.001-1.035) Urine Protein (Negative) mg/dL Urine Glucose (UA) (Negative) mg/dL Urine Ketones (Negative) mg/dL Ur Blood (Man) (Negative) Urine Nitrate (Negative) Urine Bilirubin (Negative) Urine Urobilinogen (<2.0) mg/dL Leukocyte Esterase Rfl (Negative) JENNIFER/UL Influenza A (RT-PCR) Negative (Negative) Influenza B (RT-PCR) Negative (Negative) RSV (RT-PCR) Negative (Negative) SARS-CoV-2 RNA (RT-PCR) Negative (Negative) 04/23/24 Range/Units 23:59 WBC (4.5-10.0) K/mm3 RBC (4.6-6.20) M/mm3 Hgb (14.0-18.0) g/dL Hct (42.0-52.0) % MCV (80-100) fl MCH (26-34) pg MCHC (32-36) g/dl RDW (11.5-14.5) % Plt Count (150-375) k/mm3 MPV (7.4-10.4) fl Immature Gran % (Auto) (0-0.5) % Neut % (Auto) (45.5-73.1) % Lymph % (Auto) (18.3-44.2) % [place] % (Auto) (2.6-8.5) % Eos % (Auto) (0-4.4) % Baso % (Auto) (0.2-1.2) % Lymph # (Auto) (0.9-3.2) K/mm3 [place] # (Auto) (0.1-0.6) K/mm3 Eos # (Auto) (0-0.3) K/mm3 Baso # (Auto) (0.0-0.1) K/mm3 Abs Immat Gran (auto) (0.00-0.031) K/mm3 Absolute Neuts (auto) (1.3-6.7) K/mm3 Absolute Nucleated RBC (0.0-0.012) K/mm3 Nucleated RBC % (0.0-0.2) % Sodium (137-145) mmol/L Potassium (3.4-5.0) mmol/L Chloride (98-107) mmol/L Carbon Dioxide (22-30) mmol/L Anion Gap (4-12) mmol/L BUN (9-20) mg/dL Creatinine (0.7-1.3) mg/dL Estim Creat Clear Calc ml/min Estimated GFR (59 - ) Glucose (65-110) mg/dL Lactic Acid (0.7-2.0) mmol/L Calcium (8.4-10.2) mg/dL Total Bilirubin (0.2-1.3) mg/dL AST (17-59) U/L ALT (6-50) U/L Alkaline Phosphatase (38-126) U/L Total Protein (6.3-8.2) g/dL Albumin (3.5-5.1) g/dL Urine Color Yellow (Yellow) Urine Appearance Clear (Clear) Urine pH 6.0 (5.0-9.0) Ur Specific [place] 1.022 (1.001-1.035) Urine Protein Negative (Negative) mg/dL Urine Glucose (UA) Negative (Negative) mg/dL Urine Ketones 1+ H (Negative) mg/dL Ur Blood (Man) Negative (Negative) Urine Nitrate Negative (Negative) Urine Bilirubin Negative (Negative) Urine Urobilinogen 0.2 (<2.0) mg/dL Leukocyte Esterase Rfl Negative (Negative) JENNIFER/UL Influenza A (RT-PCR) (Negative) Influenza B (RT-PCR) (Negative) RSV (RT-PCR) (Negative) SARS-CoV-2 RNA (RT-PCR) (Negative) Imaging Data Radiologist's impression: ITS Impressions Chest X-Ray 04/23/24 20:52 IMPRESSION: 1: NO ACUTE CARDIOPULMONARY DISEASE. Chest CT 04/23/24 22:46 IMPRESSION: 1. Left upper lobe pneumonia. Critical Care Time Critical Care Time Critical Care Time: Yes Total Critical Care Time: 35 Discharge Plan Discharge Clinical Impression: Acute hypoxic respiratory failure, Aspiration pneumonia Patient Disposition: Still a Patient Condition: Stable Patient Language: Rwandan Prescriptions: No Action benzonatate 100 mg Capsule 200 mg PO TID Qty: 30 0RF albuterol sulfate [Proventil HFA] 90 mcg/actuation Hfa Aerosol Inhaler 2 puff inhalation QIDRT Qty: 1 0RF guaifenesin [Mucus Relief ER] 600 mg Tablet Extended Release 12hr 600 mg PO Q12HR Qty: 30 0RF ondansetron HCl [Zofran] 4 mg tablet 4 mg PO Q6H PRN (Reason: nausea and vomiting) Qty: 14 0RF omeprazole 20 mg Capsule,Delayed Release(Dr/Ec) 20 mg PO DAILY Qty: 30 0RF budesonide-formoterol [Symbicort] 80-4.5 mcg/actuation HFA aerosol inhaler 2 puff inhalation Q12H 30 Days Qty: 10.2 0RF famotidine [Acid Controller] 20 mg tablet 20 mg PO BID diclofenac sodium 0.1 % drops 1 drp EACH EYE Q8H Qty: 5 0RF Follow-up/Referrals: Betty,CALIXTO Jose [Primary Care Provider] -
[2024-04-23 22:39] LABS: Alanine Aminotransferase 26 U/L (6-50); Albumin Level 4.6 g/dL (3.5-5.1); Alkaline Phosphatase 62 U/L (38-126); Anion Gap 9 mmol/L (4-12); Aspartate Amino Transferase 23 U/L (17-59); Blood Urea Nitrogen 14 mg/dL (9-20); Calcium 9.4 mg/dL (8.4-10.2); Carbon Dioxide 26 mmol/L (22-30); Chloride 102 mmol/L (98-107); Estimated CRCL calculation 115 ml/min; Estimated Glomerular Filt Rate > 60; Glucose 114 mg/dL (65-110); Potassium 4.4 mmol/L (3.4-5.0); Sodium 137 mmol/L (137-145)
[2024-04-23 23:00] VITALS: PULSE 89; RESP 18
[2024-04-23] MEDS: IPRATROPIUM 0.5 MG/ALBUTEROL SULFATE 2.5 MG AMPUL.NEB 3 ML INHALATION (23:00)
[2024-04-23 23:09] VITALS: BP 120/82; PULSE 90; RESP 16; O2SAT 98
[2024-04-23 23:14] VITALS: PULSE 108; RESP 18
[2024-04-23] MEDS: AMPICILLIN SULB 3 GM/NS 100 ML 3 GM/100 ML VIAL IVPB (23:22)
[2024-04-23 23:33] LABS: Lactic Acid Reflex 0.9 mmol/L (0.7-2.0)
[2024-04-24] VITALS (12 sets, daily range): BP systolic 107–126; BP diastolic 62–81; PULSE 67–98; RESP 15–20; TEMP 36.1–37.1; O2SAT 94–99; BMI 34.4
[2024-04-24 00:12] LABS: Add Urine Microscopic? NO; Appearance Urine Clear (Clear); Bilirubin Urine Negative (Negative); Blood Urine Negative (Negative); Color Urine Yellow (Yellow); Glucose Urine UA Negative (Negative); Ketones Urine 1+ mg/dL (Negative); Leukocyte Esterase Ur Negative LEU/UL (Negative); Nitrate Urine Negative (Negative); Protein Urine Negative (Negative); Specific Grav Ur 1.022 (1.001-1.035); Urobilinogen Urine 0.2 mg/dL (<2.0)
--- NOTE | 2024-04-24 03:23 | ADMGEN ---
This patient, Magdy Egan, was admitted to [facility] Surg Room 310-01. Patient/family oriented to hospital policies and general routines including ID bracelet, bed and alarms, visiting hours, pain management, procedures, bathroom and other care routines, personal items, smoking policy, room service/diet, and visiting hours. Information on how to activate the Rapid Response Team has been discussed. Patient/Family are encouraged to report perceived risks to care and to ask questions if they do not understand what they are told or what they should do.
[2024-04-24] MEDS: AMPICILLIN SULB 3 GM/NS 100 ML 3 GM/100 ML VIAL IVPB ×4 (06:08→23:22)
[2024-04-24 08:40] LABS: Basophils Absolute Auto 0.1 K/mm3 (0.0-0.1); Basophils Percent Auto 0.6 % (0.2-1.2); Eosinophils Percent Auto 0.2 % (0-4.4); Hematocrit 46.6 % (42.0-52.0); Hemoglobin 15.5 g/dL (14.0-18.0); Immature Granulocyte Absolute 0.03 K/mm3 (0.00-0.031); Immature Granulocyte Percent A 0.3 % (0-0.5); Lymphocytes Percent Auto 24.4 % (18.3-44.2); Mean Corpuscular HGB Conc 33.3 g/dl (32-36); Mean Corpuscular Hemoglobin 28.9 pg (26-34); Mean Corpuscular Volume 86.9 fl (80-100); Mean Platelet Volume 10.5 fl (7.4-10.4); Monocytes Absolute Auto 0.6 K/mm3 (0.1-0.6); Monocytes Percent Auto 5.9 % (2.6-8.5); Neutrophils Absolute Auto 7.3 K/mm3 (1.3-6.7); Neutrophils Percent Auto 68.6 % (45.5-73.1); Platelet Count Result 201 k/mm3 (150-375); Red Blood Count 5.36 M/mm3 (4.6-6.20); Red Cell Distribution Width 12.6 % (11.5-14.5); White Blood Count 10.7 K/mm3 (4.5-10.0)
[2024-04-24] MEDS: FAMOTIDINE 20 MG TABLET PO ×2 (09:03→18:25)
[2024-04-24 09:06] LABS: Alanine Aminotransferase 23 U/L (6-50); Albumin Level 4.1 g/dL (3.5-5.1); Alkaline Phosphatase 68 U/L (38-126); Anion Gap 6 mmol/L (4-12); Aspartate Amino Transferase 17 U/L (17-59); Bilirubin,Total 1.1 mg/dL (0.2-1.3); Blood Urea Nitrogen 12 mg/dL (9-20); Calcium 8.8 mg/dL (8.4-10.2); Carbon Dioxide 29 mmol/L (22-30); Chloride 103 mmol/L (98-107); Estimated CRCL calculation 134 ml/min; Estimated Glomerular Filt Rate > 60; Glucose 96 mg/dL (65-110); Magnesium 2.1 mg/dL (1.6-2.3); Sodium 138 mmol/L (137-145)
--- NOTE | 2024-04-24 09:51 | P.HP_ITS ---
H&P: HPI History of Present Illness Date/Time: 04/24/24 09:51 Chief Complaint: Fever Narrative: Patient is a 33 year old male that presented to the emergency department with fevers. Patient had a colonoscopy yesterday and later developed fever, cough, and shortness of breath. Patient was told he aspirated during the procedure. Patient also reports that when they were cleaning his face his eyes got scratched and he was called in eye drops. Patient reports feeling a little better since receiving IV antibiotics. Patient reports coughing up chunky pink stuff. Denies shortness of breath, palpitations, dizziness, nausea, or vomiting at present. Patient reports that his chest is a little sore from coughing. Patient reports that he has a history of IBS-C and on his prior colonoscopy had polyps. ER patient had wheezing that responded to nebulizer treatment. CBC with leukocytosis to 15.3. Influenza, RSV and COVID screens are negative. Chest x- ray without acute cardiopulmonary abnormality. CT chest does show left upper lobe pneumonia. Patient had oxygen desaturation into the upper 80s, placed on 2 L nasal cannula. Patient currently at 1LNC with Sa02 97%. Mother at bedside. WBC recheck improved to 10.7. Review of Systems Review of Systems: All systems reviewed & are unremarkable except as noted in HPI and below PMFSH Past Medical History Medical History (Updated 04/24/24 @ 14:18 by Philly Ramey APRN) Colon polyp Pneumonia due to COVID-19 virus Post-COVID syndrome COVID-19 Community acquired pneumonia Hydrocele Surgical History Surgical History (Updated 04/24/24 @ 14:05 by Philly Ramey APRN) History of tonsillectomy H/O knee surgery Family History Family History (Updated 04/24/24 @ 03:22 by Blaire Harrell RN) Father Leukemia Mother Fibromyalgia Social History Social History Smoking status: Former smoker Tobacco type: cigarettes Alcohol intake: never Substance use: never Substance use type: does not use Do You Feel Safe in your Home?: Yes Lack of Transportation: YES Lack of Food: Never True Current Housing: I Have Housing Concerned About Future Housing: YES Difficulty Paying Gas/Electric Bills: YES Difficulty Paying for Meds: YES Currently Unemployed: YES Education: High School Diploma/GED Difficulty w/ Childcare or Family Care: No Living arrangements: with family Gender identity (if verbalized by the patient): Male Spiritual care concerns: No Meds Home Medications and Allergies Home Medications ?Medication ?Instructions ?Recorded ?Confirmed ?Type famotidine 20 mg tablet (Acid 20 mg PO BID 04/09/24 04/24/24 History Controller) Allergies Allergy/AdvReac Type Severity Reaction Status Date / Time No Known Allergies Allergy Verified 04/23/24 20:24 Vital Signs Vital Signs - 24 hr 04/23/24 20:28 04/23/24 22:10 04/23/24 23:00 Temperature 100.2 F H Pulse Rate 129 H 89 Respiratory Rate 18 15 18 Blood Pressure 125/85 Pulse Oximetry 95 95 Oxygen Delivery Room Air Oxygen Flow Rate 04/23/24 23:09 04/23/24 23:14 04/24/24 00:14 Temperature Pulse Rate 90 108 H Respiratory Rate 16 18 Blood Pressure 120/82 Pulse Oximetry 98 97 Oxygen Delivery Nasal Cannula Oxygen Flow Rate 2 04/24/24 00:42 04/24/24 03:10 04/24/24 03:24 Temperature 98.7 F Pulse Rate 98 88 Respiratory Rate 15 15 Blood Pressure 115/81 124/62 Pulse Oximetry 96 98 96 Oxygen Delivery Nasal Cannula Oxygen Flow Rate 2 04/24/24 04:00 04/24/24 05:05 04/24/24 08:00 Temperature 96.9 F L 97.0 F L 98.4 F Pulse Rate 82 68 67 Respiratory Rate 20 16 18 Blood Pressure 114/71 115/66 117/73 Pulse Oximetry 96 97 98 Oxygen Delivery Oxygen Flow Rate Exam Const: General: comfortable and no acute distress Eyes: Pupils: Equal, round and reactive pupils present Other: eyes slightly pink with irritation noted. Neck: Neck: supple Resp: Effort & Inspection: normal respiratory effort Auscultation: diminished lung sounds Cardio: Rate: regular rate Rhythm: regular rhythm GI: GI Palp: Yes Soft to palpation Auscultation: normal bowel sounds Skin: General skin exam: no rashes or lesions noted Neuro: Speech: normal speech Extrem: General: no pedal edema Psych: Mental Status: mental status grossly normal Affect: normal affect H&P: Results Labs Labs: Short CBC 04/23/24 04/24/24 Range/Units 21:54 08:11 WBC 15.3 H 10.7 H (4.5-10.0) K/mm3 Hgb 15.9 15.5 (14.0-18.0) g/dL Hct 46.0 46.6 (42.0-52.0) % Plt Count 223 201 (150-375) k/mm3 BMP 04/23/24 04/24/24 21:54 08:11 Sodium 137 138 Potassium 4.4 4.0 Chloride 102 103 Carbon Dioxide 26 29 BUN 14 12 Creatinine 0.96 0.83 Glucose 114 H 96 Calcium 9.4 8.8 Liver Function 04/23/24 04/24/24 Range/Units 21:54 08:11 Total Bilirubin 1.0 1.1 (0.2-1.3) mg/dL AST 23 17 (17-59) U/L ALT 26 23 (6-50) U/L Alkaline Phosphatase 62 68 (38-126) U/L Albumin 4.6 4.1 (3.5-5.1) g/dL Urine 04/23/24 Range/Units 23:59 Urine Color Yellow (Yellow) Urine Appearance Clear (Clear) Urine pH 6.0 (5.0-9.0) Ur Specific [place] 1.022 (1.001-1.035) Urine Protein Negative (Negative) mg/dL Urine Glucose (UA) Negative (Negative) mg/dL Assessment and Plan Assessment and plan (1) Aspiration pneumonia: Qualifiers: Aspiration pneumonia type: unspecified Laterality: left Lung location: upper lobe of lung Qualified Code(s): J69.0 - Pneumonitis due to inhalation of food and vomit Code(s): J69.0 - Pneumonitis due to inhalation of food and vomit Status: Acute Assessment and Plan: * Unasyn 3 gram IVPB q 6. * Supplemental oxygen at 1 liter nasal cannula, wean to keep Sa02 > 92%. * Guaifenesin 600 mg PO q 12. * WBC improved from 15.3> 10.7. (2) Leukocytosis: Code(s): D72.829 - Elevated white blood cell count, unspecified Status: Acute Assessment and Plan: * WBC improved from 15.3> 10.7. * Receiving IV Unasyn 3 gram IVPB q6. (3) S/P colonoscopy: Code(s): Z98.890 - Other specified postprocedural states Status: Acute Assessment and Plan: * The colon was examined and was normal. No colitis, no diverticula, no polyp. * A few small size internal hemorrhoids were seen in the rectum. The hemorrhoids were not actively bleeding. * Next colonoscopy in 7 years. * Resume diet. Quality VTE Prophylaxis VTE prophylaxis: mechanical ordered Hospitalist MIPS Advance Care Plan I have confirmed that the patient's Advanced Care Plan is present, code status is documented, or surrogate decision maker is listed in patient medical record.: Yes Medication Reconciliation I have utilized all available resources to obtain, update and review the patients current medications (includes all prescriptions, OTC, herbals, cannabis, and nutritional supplements).: Yes
[2024-04-24] MEDS: guaiFENesin 12 HR 600 MG TABCR PO ×2 (11:11→20:57)
[2024-04-24] MEDS: DICLOFENAC SODIUM 0.1% OPHTH SOLN 2.5 ML BOTTLE 1 DROP EACH EYE ×4 (11:11→20:57)
[2024-04-25] VITALS (10 sets, daily range): BP systolic 110–132; BP diastolic 67–87; PULSE 72–94; RESP 18–20; TEMP 36.4–37.1; O2SAT 95–97
[2024-04-25 06:14] LABS: Basophils Absolute Auto 0.1 K/mm3 (0.0-0.1); Basophils Percent Auto 0.9 % (0.2-1.2); Eosinophils Absolute Auto 0.3 K/mm3 (0-0.3); Eosinophils Percent Auto 3.8 % (0-4.4); Hematocrit 44.5 % (42.0-52.0); Hemoglobin 14.9 g/dL (14.0-18.0); Immature Granulocyte Absolute 0.02 K/mm3 (0.00-0.031); Immature Granulocyte Percent A 0.2 % (0-0.5); Lymphocytes Absolute Auto 2.92 K/mm3 (0.9-3.2); Lymphocytes Percent Auto 35.5 % (18.3-44.2); Mean Corpuscular HGB Conc 33.5 g/dl (32-36); Mean Corpuscular Volume 86.7 fl (80-100); Mean Platelet Volume 10.2 fl (7.4-10.4); Monocytes Absolute Auto 0.5 K/mm3 (0.1-0.6); Monocytes Percent Auto 5.7 % (2.6-8.5); Neutrophils Absolute Auto 4.4 K/mm3 (1.3-6.7); Neutrophils Percent Auto 53.9 % (45.5-73.1); Platelet Count Result 191 k/mm3 (150-375); Red Blood Count 5.13 M/mm3 (4.6-6.20); Red Cell Distribution Width 12.6 % (11.5-14.5); White Blood Count 8.2 K/mm3 (4.5-10.0)
[2024-04-25 06:26] LABS: Alanine Aminotransferase 24 U/L (6-50); Albumin Level 3.9 g/dL (3.5-5.1); Alkaline Phosphatase 65 U/L (38-126); Anion Gap 5 mmol/L (4-12); Aspartate Amino Transferase 16 U/L (17-59); Bilirubin,Total 0.6 mg/dL (0.2-1.3); Blood Urea Nitrogen 10 mg/dL (9-20); Calcium 8.9 mg/dL (8.4-10.2); Carbon Dioxide 27 mmol/L (22-30); Chloride 107 mmol/L (98-107); Estimated CRCL calculation 132 ml/min; Estimated Glomerular Filt Rate > 60; Glucose 93 mg/dL (65-110); Potassium 4.2 mmol/L (3.4-5.0); Sodium 139 mmol/L (137-145)
[2024-04-25] MEDS: AMPICILLIN SULB 3 GM/NS 100 ML 3 GM/100 ML VIAL IVPB ×3 (06:47→17:47)
[2024-04-25] MEDS: FAMOTIDINE 20 MG TABLET PO ×2 (09:30→17:47)
[2024-04-25] MEDS: DICLOFENAC SODIUM 0.1% OPHTH SOLN 2.5 ML BOTTLE 1 DROP EACH EYE ×4 (09:30→21:28)
[2024-04-25] MEDS: guaiFENesin 12 HR 600 MG TABCR PO ×2 (09:30→21:28)
--- NOTE | 2024-04-25 10:11 | P.PNIM_ITS ---
Progress Note: A&P Assessment and Plan (1) Aspiration pneumonia: Qualifiers: Aspiration pneumonia type: unspecified Laterality: left Lung location: upper lobe of lung Qualified Code(s): J69.0 - Pneumonitis due to inhalation of food and vomit Code(s): J69.0 - Pneumonitis due to inhalation of food and vomit Status: Acute Assessment and Plan: * Unasyn 3 gram IVPB q 6. * Supplemental oxygen at 1 liter nasal cannula, wean to keep Sa02 > 92%. * Guaifenesin 600 mg PO q 12. * WBC improved from 15.3> 10.7> 8.2. * Add Duoneb q 6. * Add incentive spirometer. (2) Leukocytosis: Code(s): D72.829 - Elevated white blood cell count, unspecified Status: Acute Assessment and Plan: * WBC improved from 15.3> 10.7> 8.2. * Receiving IV Unasyn 3 gram IVPB q6. (3) S/P colonoscopy: Code(s): Z98.890 - Other specified postprocedural states Status: Acute Assessment and Plan: * The colon was examined and was normal. No colitis, no diverticula, no polyp. * A few small size internal hemorrhoids were seen in the rectum. The hemorrhoids were not actively bleeding. * Next colonoscopy in 7 years. * Resume diet. Subjective Date/time seen: 04/25/24 10:11 Interval history: Patient reports feeling 25-50% better. Patient reports coughing up pink to yellow drainage. Wheezing has improved. Patient reports soreness from coughing and tightness when taking a breath at times. Patient denies fever, headache, dizziness, nausea, or vomiting. Review of Systems Review of Systems: All systems reviewed & are unremarkable except as noted in HPI and below Exam Const: General: comfortable and no acute distress Resp: Auscultation: wheezes (mid to lower lobes. ) expiratory wheezes and diminished lung sounds Cardio: Rate: regular rate Rhythm: regular rhythm GI: GI Palp: Yes Soft to palpation Auscultation: normal bowel sounds Skin: General skin exam: no rashes or lesions noted Neuro: Speech: normal speech Extrem: General: no pedal edema Psych: Mental Status: mental status grossly normal Affect: normal affect Objective Data Vital Signs Vital Signs: Vital Signs - 24 hr 04/24/24 11:57 04/24/24 12:00 04/24/24 14:00 Temperature 97.3 F L 96.9 F L Pulse Rate 83 75 Respiratory Rate 16 16 Blood Pressure 107/68 112/72 Pulse Oximetry 94 97 99 Oxygen Delivery Room Air 04/24/24 20:00 04/24/24 20:15 04/25/24 00:45 Temperature 98.7 F 98.1 F Pulse Rate 91 72 Respiratory Rate 18 18 Blood Pressure 126/69 110/67 Pulse Oximetry 97 97 Oxygen Delivery Room Air 04/25/24 04:00 04/25/24 08:00 Temperature 97.5 F L 98.2 F Pulse Rate 73 82 Respiratory Rate 18 18 Blood Pressure 119/76 111/73 Pulse Oximetry 96 95 Oxygen Delivery Intake/Output Intake/Output: Intake & Output 04/22/24 04/23/24 04/24/24 04/25/24 23:59 23:59 23:59 23:59 Intake Total 1000 1860 150 Balance 1000 1860 150 Meds/Results Medications: Active Medications Generic Name Dose Route Start Last Admin Trade Name Freq PRN Reason Stop Dose Admin Diclofenac Sodium 1 drop 04/24/24 10:15 04/25/24 09:30 Diclofenac Sodium 0.1% Ophth Soln 2.5 Ml Bottle EACH EYE 1 drop QID TAYE Administration Famotidine 20 mg 04/24/24 09:00 04/25/24 09:30 Famotidine 20 Mg Tablet PO 20 mg BID TAYE Administration Guaifenesin 600 mg 04/24/24 10:15 04/25/24 09:30 Guaifenesin 12 Hr 600 Mg Tabcr PO 05/01/24 10:14 600 mg Q12HR TAYE Administration Ampicillin Sodium/Sulbactam Sodium 3 gm in 100 mls @ 200 mls/hr 04/24/24 06:00 04/25/24 06:47 Unasyn 3 Gm/Ns 100 Ml IVPB 200 mls/hr Q6HR TAYE Administration Radiology Results: ITS Impressions Chest X-Ray 04/23/24 20:52 IMPRESSION: 1: NO ACUTE CARDIOPULMONARY DISEASE. Chest CT 04/23/24 22:46 IMPRESSION: 1. Left upper lobe pneumonia. Labs Labs: Laboratory Results - last 24 hr 04/25/24 05:51 WBC 8.2 RBC 5.13 Hgb 14.9 Hct 44.5 MCV 86.7 MCH 29.0 MCHC 33.5 RDW 12.6 Plt Count 191 MPV 10.2 Immature Gran % (Auto) 0.2 Neut % (Auto) 53.9 Lymph % (Auto) 35.5 [place] % (Auto) 5.7 Eos % (Auto) 3.8 Baso % (Auto) 0.9 Lymph # (Auto) 2.92 [place] # (Auto) 0.5 Eos # (Auto) 0.3 Baso # (Auto) 0.1 Abs Immat Gran (auto) 0.02 Absolute Neuts (auto) 4.4 Absolute Nucleated RBC 0.000 Nucleated RBC % 0.0 Sodium 139 Potassium 4.2 Chloride 107 Carbon Dioxide 27 Anion Gap 5 BUN 10 Creatinine 0.84 Estim Creat Clear Calc 132 Estimated GFR > 60 Glucose 93 Calcium 8.9 Total Bilirubin 0.6 AST 16 L ALT 24 Alkaline Phosphatase 65 Total Protein 7.0 Albumin 3.9 Quality VTE Prophylaxis VTE prophylaxis: mechanical ordered
[2024-04-25] MEDS: IPRATROPIUM 0.5 MG/ALBUTEROL SULFATE 2.5 MG AMPUL.NEB 3 ML INHALATION ×2 (14:49→21:29)
[2024-04-26] VITALS (7 sets, daily range): BP systolic 114–135; BP diastolic 65–69; PULSE 63–84; RESP 18–20; TEMP 36.6–36.9; O2SAT 94–95
[2024-04-26] MEDS: AMPICILLIN SULB 3 GM/NS 100 ML 3 GM/100 ML VIAL IVPB ×3 (00:11→11:54)
[2024-04-26] MEDS: IPRATROPIUM 0.5 MG/ALBUTEROL SULFATE 2.5 MG AMPUL.NEB 3 ML INHALATION ×2 (02:27→08:11)
[2024-04-26 06:38] LABS: Alanine Aminotransferase 25 U/L (6-50); Albumin Level 4.1 g/dL (3.5-5.1); Alkaline Phosphatase 65 U/L (38-126); Anion Gap 10 mmol/L (4-12); Aspartate Amino Transferase 16 U/L (17-59); Bilirubin,Total 0.4 mg/dL (0.2-1.3); Blood Urea Nitrogen 11 mg/dL (9-20); Calcium 9.3 mg/dL (8.4-10.2); Carbon Dioxide 25 mmol/L (22-30); Chloride 105 mmol/L (98-107); Estimated CRCL calculation 135 ml/min; Estimated Glomerular Filt Rate > 60; Glucose 99 mg/dL (65-110); Sodium 140 mmol/L (137-145)
[2024-04-26 06:57] LABS: Basophils Absolute Auto 0.1 K/mm3 (0.0-0.1); Eosinophils Absolute Auto 0.2 K/mm3 (0-0.3); Eosinophils Percent Auto 3.3 % (0-4.4); Hematocrit 45.9 % (42.0-52.0); Hemoglobin 15.5 g/dL (14.0-18.0); Immature Granulocyte Absolute 0.02 K/mm3 (0.00-0.031); Immature Granulocyte Percent A 0.3 % (0-0.5); Lymphocytes Absolute Auto 2.51 K/mm3 (0.9-3.2); Lymphocytes Percent Auto 36.1 % (18.3-44.2); Mean Corpuscular HGB Conc 33.8 g/dl (32-36); Mean Corpuscular Hemoglobin 29.5 pg (26-34); Mean Corpuscular Volume 87.4 fl (80-100); Mean Platelet Volume 10.7 fl (7.4-10.4); Monocytes Absolute Auto 0.4 K/mm3 (0.1-0.6); Monocytes Percent Auto 6.3 % (2.6-8.5); Neutrophils Absolute Auto 3.7 K/mm3 (1.3-6.7); Platelet Count Result 210 k/mm3 (150-375); Red Blood Count 5.25 M/mm3 (4.6-6.20); Red Cell Distribution Width 12.5 % (11.5-14.5)
[2024-04-26] MEDS: DICLOFENAC SODIUM 0.1% OPHTH SOLN 2.5 ML BOTTLE 1 DROP EACH EYE (08:23)
[2024-04-26] MEDS: FAMOTIDINE 20 MG TABLET PO (08:23)
[2024-04-26] MEDS: guaiFENesin 12 HR 600 MG TABCR PO (08:23)
[2024-04-26] MEDS: ACETAMINOPHEN 325 MG TABLET 650 MG PO (08:57)
--- NOTE | 2024-04-26 11:40 | P.DS_ITS ---
DS: Admitting Diagnosis Discharge Date 04/26/2024 Admitting Diagnosis Fever, cough, shortness of breath. DS: Discharge Diagnosis Discharge Diagnosis (1) Aspiration pneumonia: Qualifiers: Aspiration pneumonia type: unspecified Laterality: left Lung location: upper lobe of lung Qualified Code(s): J69.0 - Pneumonitis due to inhalation of food and vomit Code(s): J69.0 - Pneumonitis due to inhalation of food and vomit Status: Acute (2) Leukocytosis: Code(s): D72.829 - Elevated white blood cell count, unspecified Status: Acute (3) S/P colonoscopy: Code(s): Z98.890 - Other specified postprocedural states Status: Acute DS: Summary Hospital Course Hospital Course: * Patient is a 33 year old male that presented to the emergency department with fevers. Patient had a colonoscopy yesterday and later developed fever, cough, and shortness of breath. Patient was told he aspirated during the procedure. Patient also reports that when they were cleaning his face his eyes got scratched and he was called in eye drops. Patient reports feeling a little better since receiving IV antibiotics. Patient reports coughing up chunky pink stuff. * ER patient had wheezing that responded to nebulizer treatment. CBC with leukocytosis to 15.3. Influenza, RSV and COVID screens are negative. Chest x-ray without acute cardiopulmonary abnormality. CT chest does show left upper lobe pneumonia. Patient had oxygen desaturation into the upper 80s, placed on 2 L nasal cannula. * Patient received Duoneb q 6 and Unasyn 3 gram IVPB q 6. Incentive Spirometer and Mucinex. WBC improved from 15.3>7.0. * Patient weaned to RA with Sa02 94-95%. * Patient feeling better today with no wheezing. Patient discharged home on Augmentin, Mucinex, and Albuterol inhaler PRN. Status at Discharge Functional status at discharge: independent ambulation Overall status at discharge: patient is progressing back to baseline Time Spent with Patient Time attestation: Total time spent providing and/or coordinating discharge services: Time spent: Greater than 30 minutes Exam Const: General: comfortable and no acute distress Eyes: Sclera: sclerae normal Resp: Auscultation: diminished lung sounds Other: No audible wheezes Cardio: Rate: regular rate Rhythm: regular rhythm GI: GI Palp: Yes Soft to palpation Auscultation: normal bowel sounds Skin: General skin exam: no rashes or lesions noted Extrem: General: no pedal edema Psych: Mental Status: mental status grossly normal Affect: normal affect DS: Data Data Completed and Pending Labs on day of discharge: Labs from last 24 hours 04/26/24 05:37 WBC 7.0 RBC 5.25 Hgb 15.5 Hct 45.9 MCV 87.4 MCH 29.5 MCHC 33.8 RDW 12.5 Plt Count 210 MPV 10.7 H Immature Gran % (Auto) 0.3 Neut % (Auto) 53.0 Lymph % (Auto) 36.1 [place] % (Auto) 6.3 Eos % (Auto) 3.3 Baso % (Auto) 1.0 Lymph # (Auto) 2.51 [place] # (Auto) 0.4 Eos # (Auto) 0.2 Baso # (Auto) 0.1 Abs Immat Gran (auto) 0.02 Absolute Neuts (auto) 3.7 Absolute Nucleated RBC 0.000 Nucleated RBC % 0.0 Sodium 140 Potassium 4.0 Chloride 105 Carbon Dioxide 25 Anion Gap 10 BUN 11 Creatinine 0.82 Estim Creat Clear Calc 135 Estimated GFR > 60 Glucose 99 Calcium 9.3 Total Bilirubin 0.4 AST 16 L ALT 25 Alkaline Phosphatase 65 Total Protein 7.0 Albumin 4.1 Preliminary micro results at discharge 04/23/24 23:08 Blood Culture - Preliminary Blood 04/23/24 23:09 Blood Culture - Preliminary Blood Discharge Plan Discharge Attending physician on discharge: Casper Romero Discharging Clinician: Philly Ramey Anticipated Discharge Date/Time: 04/26/24 13:00 Patient Disposition: Home, Self-Care Activity: may shower and as tolerated Diet: regular Discharge Instructions: * complete all doses of antibiotics. * Use incentive spirometer 6 times each hour while awake. * Report to provider any worsening breathing, fever, or if you do not continue to improve each day. * Walk around home as tolerated. * Drink water and take Mucinex to thin secretions. Thank you for entrusting [facility] with your healthcare! Patient Instructions: Antibiotic Form, How to Use an Incentive Spirometer (DC), Aspiration Pneumonia (DC) Patient Language: [place] Stand Alone Forms: General Discharge Information Follow-up/Referrals: BettyRebeca PA-C [Primary Care Provider] - 1 Week Discharge Medications: New guaifenesin [Mucus Relief ER] 600 mg Tablet Extended Release 12hr 600 mg PO Q12HR Qty: 14 0RF albuterol sulfate [Ventolin HFA] 90 mcg/actuation HFA aerosol inhaler 2 puff inhalation QID PRN (Reason: shortness of breath or wheezing) Qty: 8.5 0RF amoxicillin-pot clavulanate 875-125 mg tablet 1 tablet PO Q12H Qty: 14 0RF Continued famotidine [Acid Controller] 20 mg tablet 20 mg PO BID Date of admission: 04/24/24 08:36 Primary Care Provider: BettyRebeca Admitting Provider: Frank Traylor V. Attending physician on admission: Frank Traylor V. Condition: Stable Hospitalist MIPS Heart Failure (Exclusion) Patient has history of Heart Transplant or Left Ventricular Assistive Device?: No IF YES, STOP HERE Heart Failure (Qualifier) Patient has current or prior documentation of LVEF less than or equal to 40%, or mod/servere depressed LVSF?: No IF NO, STOP HERE
--- OUTSIDE RECORDS SUMMARY | 2024-04-30 04:22 | XMS_ITS | Clinical Summary ---
Author Organization [facility] Address [address] [address] Phone Care Team Providers Care Clipper Operator Name Role Phone Soto Rehman MD Primary Care Provider + [phone] Allergies No known active allergies Medications selenium sulfide 2.5 % lotion Apply topically daily as needed for irritation 118 mL 2 05/21/19 20 Active dextroamphetamine- amphetamine (ADDERALL) 5 mg tablet Take 1 tablet (5 mg total) by mouth 2 (two) times a day 60 tablet 05/25/19 20 Active linaCLOtide (LINZESS) 145 mcg capsule Take 1 capsule (145 mcg total) by mouth daily Active ibuprofen (ADVIL,MOTRIN) 200 mg tab/cap Active oxymetazoline (oxymetazoline) 0.05 % nasal spray Administer 2 sprays into each nostril 2 (two) times a day Active sod chlor,sod bicarb/neti pot (SINUS WASH NETI POT VINCENZO) by sinus irrigation route Active tobramycin-dexAMET Hasone (TOBRADEX) ophthalmic solution INSTILL 1 DROP INTO LEFT EYE THREE TIMES DAILY FOR 3 DAYS THEN ONCE DAILY X3 DAYS 11/29/19 21 Active Symbicort 80-4.5 mcg/actuation inhaler 02/26/20 21 Active albuterol HFA (PROVENTIL HFA,VENTOLIN HFA,PROAIR HFA) 90 mcg/actuation inhaler 02/26/20 21 Active niacin 50 mg tablet Take 1 tablet (50 mg total) by mouth daily with breakfast Active medium chain triglycerides (MCT OIL ORAL) Take by mouth Active ubidecarenone (H2Q COQ10 ORAL) Take by mouth Acti ve aspirin 325 mg tablet Take 1 tablet (325 mg total) by mouth daily Active resveratrol-querce tin 100-100 mg tablet Take by mouth Active ascorbic acid (VITAMIN C ORAL) Take by mouth Active cholecalciferol, vitamin D3, (VITAMIN D3 ORAL) Take by mouth Active fluvoxaMINE (LUVOX) 50 mg tablet Take 1 tablet (50 mg total) by mouth nightly 30 tablet 2 04/12/19 22 Active multivitamin capsule Take 1 capsule by mouth daily Active fish oil-dha-epa 1,200-144-216 mg capsule Take by mouth Active medium chain triglycerides (MCT OIL ORAL) Take by mouth Active albuterol HFA (ProAir HFA) 90 mcg/actuation inhalerIndications :Acute non-recurrent pansinusitis Inhale 2 puffs every 4 (four) hours as needed for wheezing or shortness of breath 8.5 g 08/01/19 22 Active Additional Information Patient not taking.Reported on 02/21/2022 ondansetron ODT (ZOFRAN-ODT) 4 mg disintegrating tablet Dissolve 1 tablet oral every 4 hours as needed for nausea or vomiting. 15 tablet 02/05/20 22 Active HYDROcodone-acetam inophen (NORCO) 5-325 mg per tabletIndications: Pain Take 1 tablet by mouth every 6 (six) hours as needed for pain 12 tablet 02/05/20 22 Active famotidine (PEPCID) 20 mg tablet Take 1 tablet (20 mg total) by mouth 2 (two) times a day 60 tablet 2 05/03/19 23 Active benzonatate (TESSALON) 200 mg capsuleIndications :Acute cough Take 1 capsule (200 mg total) by mouth 3 (three) times a day as needed for cough 30 capsule 11/16/19 24 Active promethazine (PHENERGAN) 1.25 mg/mL syrupIndications:B ronchitis Take 5 mL (6.25 mg total) by mouth 4 (four) times a day as needed for nausea or vomiting 240 mL 12/24/19 24 Active Active Problems Problem Noted Date Diagnosed Date Family history of colon cancer 06/11/2019 Overview (06/15/2019): Repeat colonoscopy in 5 years (June 2024) for screening purposes. Maternal great grandfather had colon cancer and he in his 50s. Maternal great grandmother had colon cancer. Assessment & Plan (06/11/2019 9:44 AM SIGN SHOP SUPERVISOR): Colonoscopy Maternal great grandfather had colon cancer and he in his 50s. Maternal great grandmother had colon cancer Irritable bowel syndrome with constipation 07/23 Assessment & Plan (06/11/2019 9:53 AM SIGN SHOP SUPERVISOR): Stay hydrated. Colonoscopy Linzess 290mcg daily causes him to be sleepy. Give samples of linzess 145mcg daily and linzess 72mcg daily. Take on an empty stomach and wait 30min before having breakfast. Add metamucil 1 tablespoonful daily. Assessment & Plan (05/21/2019 10:21 AM SIGN SHOP SUPERVISOR): New rx given today and instructed on usage and side effects - pt to call in 3-4 wks with progress report Assessment & Plan (07/23/2018 10:36 AM CDT): New rx given today and instructed on usage and side effects - pt to call in 3-4 wks with progress report Avoid dairy Food diary Refer back to GI if sx cont Attention deficit disorder 08/29/2017 Assessment & Plan (08/06/2018 11:22 AM CDT): Medication usage discussed , side effects discussed, refills given and pt to f/u in 6 months Assessment & Plan (06/30/2018 4:03 PM CDT): Medication usage discussed , side effects discussed, refills given and pt to f/u in 6 months Dose change today Assessment & Plan (11/06/2017 4:50 PM CDT): Medication usage discussed , side effects discussed, refills given and pt to f/u in 6 months Dose incr today Assessment & Plan (08/29/2017 10:42 AM CDT): New rx given today and instructed on usage and side effects - pt to call in 3-4 wks with progress report Gastroesophageal reflux disease without esophagi tis 08/29/2017 Assessment & Plan (06/11/2019 9:36 AM SIGN SHOP SUPERVISOR): Avoid provocative foods: citrus, alcohol, coffee, chocolate, mints. Avoid smoking. Maintain a healthy weight. Eat smaller meals, no eating three hours prior to bedtime. Assessment & Plan (06/30/2018 4:03 PM CDT): Continue present meds and f/u 6 months Assessment & Plan (05/15/2018 1:57 PM SIGN SHOP SUPERVISOR): Avoid provocative foods: citrus, alcohol, coffee, chocolate, mints. Avoid smoking. Maintain a healthy weight. Eat smaller meals, no eating three hours prior to bedtime. Mother has Ordonez's esophagus. EGD Assessment & Plan (08/29/2017 10:42 AM CDT): Continue present meds and f/u 6 months Resolved Problems Problem Noted Date Diagnosed Date Resolved Date Change in bowel habits 06/11/201903/21 Overview (06/11/2019): Added automatically from request for surgery [id number] BMI 30.0-30.9,adult 05/21/2019 03/21/20 21 Assessment & Plan (06/11/2019 9:36 AM SIGN SHOP SUPERVISOR): Maintain a healthy weight Assessment & Plan (05/21/2019 10:21 AM SIGN SHOP SUPERVISOR): Pt has been advised on diet Contact dermatitis 08/06/2018 Assessment & Plan (10/13/2018 8:58 AM CDT): Take medication as prescribed and follow up in 3-4 days if symptoms not improving Assessment & Plan (08/06/2018 11:22 AM CDT): Take medication as prescribed and follow up in 3-4 days if symptoms not improving Right upper quadrant abdominal pain 06/30/2018 03/21/2021 Assessment & Plan (06/30/2018 4:04 PM CDT): May be Gb related U/s pend to assess Flatulence, eructation and gas pain 05/15/2018 03/21/2021 Assessment & Plan (05/15/2018 2:14 PM SIGN SHOP SUPERVISOR): EGD with biopsies for H pylori and to exclude peptic ulcer disease Hydrogen lactulose breath testing in future to check for small intestinal bacterial overgrowth. Check Vitamin D Check TTG IgA Nausea and vomiting in adult patient 05/15/2018 03/21/2021 Assessment & Plan (05/15/2018 2:01 PM SIGN SHOP SUPERVISOR): Check TTG IgA EGD with biopsies for H pylori and to exclude peptic ulcer disease Epigastric abdominal pain 05/15/2018 Assessment & Plan (05/15/2018 2:01 PM SIGN SHOP SUPERVISOR): EGD CBC, CMP, amylase and lipase Thumb laceration, left, initial encounter 01/28/2018 03/21/2021 Overweight (BMI 25.0-29.9) 08/29/2017 1 05/22/2020 Assessment & Plan (06/30/2018 4:03 PM CDT): Pt has been advised on diet/exercise/weight loss Assessment & Plan (11/06/2017 4:50 PM CDT): Pt has been advised on diet/exercise/weight loss Assessment & Plan (08/29/2017 10:43 AM CDT): Pt has been advised on diet/exercise/weight loss Acute pharyngitis 12/11/2013 03/21/2021 Overview (07/12/2016): Acute pharyngitis Upper respiratory tract infection 12/08/2013 03/21/2021 Overview (07/12/2016): Upper respiratory infection Immunizations Name Administration Dates Next Due Hep B, Adolescent or Pediatric 08/07/1999,1998,02/21/1999 Influenza, Unspecified 01/06/2019,2017(Deferred: Patient Refused),08/29/2017(Deferred: Patient Refused),01/30/2017(Deferred: Patient Refused) Tdap 01/27/2018,08/29/2008 Surgical History Surgery Date Site/Laterality Comments TONSILLECTOMY Tonsillectomy KNEE SURGERY APPENDECTOMY HYDROCELE EXCISION / REPAIR at age 2 UPPER GASTROINTESTINAL ENDOSCOPY Medical History Medical History Date Comments Nausea & vomiting Bloating Attention deficit disorder 08/29/2017 Irritable bowel syndrome with constipation 07/23 Gastroesophageal reflux disease without esophagi tis 08/29/2017 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 Family History Medical History Relation Name Comments Diabetes Mother Juliann Alda Hypertension Mother Juliann Ingris Obesity Mother Juliann Ingris Colon cancer Other Relation Name Status Comments Mother Juliann Alda Other great grandmoth er on paternal side great grandfather on maternal side Social History Tobacco Use Types Packs/Day Years Used Date Smoking Tobacco: Former Cigarettes Q uit: 05/27/2017 Vaping Smokeless Tobacco: Former Tobacco Cessation:Counseling Given: Not Answered Alcohol Use Standard Drinks/Week Comments Yes 2 (1 standard drink = 0.6 oz pur e alcohol) Rare PHQ-2 Answer Date Recorded PHQ-2 Score 0 11/28/2018 Sex and Gender Information Value Date Recorded Sex Assigned at Not on file Legal Sex Male 3:24 AM SIGN SHOP SUPERVISOR Gender Identity Male 03/21/2021 6:54 AM SIGN SHOP SUPERVISOR Sexual Orientation Straight 03/21/2021 6: 54 AM SIGN SHOP SUPERVISOR Obstetrics History Last Filed Vital Signs Vital Sign Reading Time Taken Comments Blood Pressure 128/82 12/24/2023 3:25 PM CDT Pulse 93 12/24/2023 3:25 PM CDT Temperature 36.8 ??C (98.2 ??F) 12/24/2023 3:25 PM CD T Respiratory Rate 18 12/24/2023 3:25 PM CDT Oxygen Saturation 96% 12/24/2023 3:25 PM CDT Inhaled Oxygen Concentration - - Weight 110.7 kg (244 lb) 12/24/2023 3:25 PM CDT Height 172.7 cm (5' 8 ) 12/24/2023 3:25 PM CDT Body Mass Index 37.1 12/24/2023 3:25 PM CDT Plan of Treatment Health Maintenance Due Date Last Done Comments Hepatitis C Screening 1988 Varicella Vaccines (1 of 2 - 13+ 2-dose series) 2001 Regular Well Visit/Exam 18-64 2006 Depression Screening 05/21/2020 05/21/2019, 10/13/2018, 07/23/2018, Additional history exists Influenza Vaccine (#1) 2023 01/06/2019 DTaP/Tdap/Td Vaccine (3 - Td or Tdap) 01/28/2028 01/27/2018, 08/29/2008 HPV Vaccines Aged Out No longer eligi ble based on patient's age to complete this topic Pneumococcal vaccine <65 Aged Out No longer eligible based on patient's age to complete this topic Insurance [facility] CHOICE PLUS [facility]/PPO Address[place] [address] [facility] CHOICE PLUS [address] [facility]ALTHCARE HMO [facility] CHOICE PLUS [facility] HMO/PPO Address: [address] HMO [facility] H[facility] * Guarantor: [facility] Account Type Relation to Patient Date of Phone Billing Address Donor Other Advance Directives For more information, please contact: [phone] * Full Code (Latest Code Status on File) Date Activated Date Inactivated Comments 05/28/2018 7:50 AM 05/28/2018 1:55 PM Care Teams Clipper Operator Relationship Specialty Start Date End Date Soto Rehman MD [address] [place] [address] PCP - General Internal Medicine 11/16/23
--- OUTSIDE RECORDS SUMMARY | 2024-04-30 04:22 | XMS_ITS | Patient Health Summary ---
Author Organization [facility] Address [address] [facility] [place] [address] Care Team Providers Care Supply Officer Name Role Phone Ronald Caldwell MD Primary Care Provider Eugene graff Note from [facility],non-owned Affiliates and Associated Physician Practices is amultiple site organization consisting of ambulatory clinics and hospital sitesin [place], [place], [place] and [place]. This disclosure is being madepursuant to the Care Everywhere program and may not contain all information available regarding this patient. Last updated 17.[facility] Allergies No known active allergies Medications * Be aware that medications may not be up to date on this document. Alwaysverify current medications with the patient. * omeprazole (PRILOSEC) 20 MG capsule(Started 08/05/2017) TAKE ONE CAPSULE BY MOUTH DAILY BEFORE BREAKFAST 1 refill remaining * amphetamine-dextroamphetamine XR 24hr (ADDERALL XR) 15 MG capsule Take 20 mg by mouth every morning * vitamin D, ergocalciferol, (DRISDOL) 24277 UNITS capsule Take 50,000 Units by mouth every 7 days Active Problems Problem Noted Date Diagnosed Date Gastroesophageal reflux disease without esophagi tis 05/07/2016 Nephrolithiasis 01/11/2016 Social History Tobacco Use Types Packs/Day Years Used Date Smoking Tobacco: Every Day Smokeless Tobacco: Never Tobacco Cessation:Counseling Given: Yes Alcohol Use Standard Drinks/Week Comments Yes 0 (1 standard drink = 0.6 oz pur e alcohol) Occ Sex and Gender Information Value Date Recorded Sex Assigned at Not on file Gender Identity 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 Sexual Orientation Not on file Last Filed Vital Signs Vital Sign Reading Time Taken Comments Blood Pressure 116/78 06/24/2018 2:12 PM CDT Pulse 76 06/24/2018 2:12 PM CDT Temperature 36.8 ??C (98.3 ??F) 06/24/2018 2:12 PM CD T Respiratory Rate 17 06/24/2018 2:12 PM CDT Oxygen Saturation 99% 06/24/2018 2:12 PM CDT Inhaled Oxygen Concentration - - Weight 83.9 kg (185 lb) 06/24/2018 2:12 PM CDT Height 175.3 cm (5' 9 ) 06/24/2018 2:12 PM CDT Body Mass Index 27.32 06/24/2018 2:12 PM CDT Procedures * STREP A SCREEN - POCT (IP) URGENT CARE(Performed 06/24/2018) Performed for Acute mucoid otitis media of left ear * STREP A SCREEN - POINT OF CARE (AMB) STL(Performed 06/10/2018) Performed for Acute upper respiratory infection * STREP A SCREEN - POINT OF CARE (AMB) STL(Performed 12/30/2017) Performed for Nasopharyngitis acute * STREP A SCREEN - POINT OF CARE (AMB) STL(Performed 09/19/2017) Performed for Strep throat * STREP A SCREEN - POINT OF CARE (AMB) STL(Performed 05/11/2017) Performed for Symptoms of upper respiratory infection (URI) * INFLUENZA A+B - POINT OF CARE (AMB)(Performed 05/11/2017) Performed for Symptoms of upper respiratory infection (URI) * TSH HI LOW REFLEX FREE T4(Performed 02/16/2016) Performed for Gastroesophageal reflux disease with esophagitis, Other fatigue * CT ABDOMEN PELVIS WO CONTRAST(Performed 01/11/2016) Performed for Right flank pain * COMPREHENSIVE METABOLIC PANEL(Performed 01/11/2016) * CBC W AUTO DIFFERENTIAL(Performed 01/11/2016) * LIPID PROFILE(Performed 01/10/2016) Performed for Lipid screening * CBC W AUTO DIFFERENTIAL(Performed 01/10/2016) Performed for Nephrolithiasis * COMPREHENSIVE METABOLIC PANEL(Performed 01/10/2016) Performed for Nephrolithiasis * CHLAMYDIA + GC AMPLIFIED PROBE(Performed 01/10/2016) Performed for Nephrolithiasis * URINALYSIS - POINT OF CARE(Performed 01/10/2016) Performed for Nephrolithiasis * CULTURE URINE(Performed 01/10/2016) Performed for Nephrolithiasis * XR CHEST 2VW(Performed 07/05/2015) Performed for Chest tightness * STREP A SCREEN - POCT (IP) URGENT CARE(Performed 06/25/2015) Results * STREP A SCREEN - POCT (IP) URGENT CARE (06/24/2018 2:19 PM CDT) Only the most recent of2 resultswithin the time period is included. Strep A Rapid POCT Negative Negative [facility] POCT TESTING QC Verified Yes Yes [facility] POC T TESTING Throat ENTIRE THROAT (SURFACE REGION OF NECK) / Unknown 06/24/2018 2:19 PM CDT Bethanie Cardona DIESEL MAINTENANCE ELECTRICIAN-SUPERINTENDENT STATIONS LAB - P OINT OF CARE ORDERABLES [facility] POCT TESTING [address] [facility] [address] * STREP A SCREEN - POINT OF CARE (AMB) STL (06/10/2018) Only the most recent of4 resultswithin the time period is included. Pathologist [facility] Strep A Rapid POCT Negative Negative Strep A Internal Control Present Lot # [id number] Expiration Date 01/06/20 Throat ENTIRE THROAT (SURFACE REGION OF NECK) / Unknown 06/10/2018 Lauraher Barbara Roper DIESEL MAINTENANCE ELECTRICIAN-SUPERINTENDENT STATIONS LAB - POINT OF CARE ORDERABLES * INFLUENZA A+B - POINT OF CARE (AMB) (05/11/2017) Pathologist [facility] Influenza A Antigen Rapid Negative Negative Influenza B Antigen Rapid Negative Negative Influenza Internal Control neg/pos NEGATIVE - POSITIVE Influenza Lot Number [id number] Influenza Expiration Date Other NASOPHARYNGEAL SWAB / Unknown 05/11/2017 Halley Woods DIESEL MAINTENANCE ELECTRICIAN-SUPERINTENDENT STATIONS LAB - POIN T OF CARE ORDERABLES * TSH HI LOW REFLEX FREE T4 (PO REF LAB) (02/16/2016 4:02 PM DUCK FARMER) TSH 0.591 0.358 - 3.740 ulU/mL [facility] ACCOUNT BILL Blood BLOOD SPECIMEN / Unknown 02/16/2016 4:02 PM DUCK FARMER 02/16/2016 Narrative Resulting Agency Comment [facility] [address] [facility] ??[facility] [id number] Kike Guerra Jr., MD LAB - CHEMISTRY ORDERABLES [facility] ACCOUNT [place] [address] [place] [address] * CT RENAL STONE PROTOCOL (NO IV AND NO ORAL CONTRAST) (01/11/2016 3:12 PM CDT) Anatomical Region Laterality Modality Abdomen, Pelvis Computed Tomogra phy 01/11/2016 3:16 PM CDT Impressions 01/11/2016 3:21 PM CDT No hydronephrosis or radiopaque urinary tract stones. Narrative 01/11/2016 3:21 PM CDT Examination: CT abdomen and pelvis without contrast History: Renal stones Findings: No prior study is available for comparison. Transaxial images of the abdomen and pelvis were obtained without contrast according to renal stone protocol. The visualized portions of the lung bases reveal minimal dependent atelectasis. There is a tiny low-attenuation lesion within the right hemiliver which is too small to definitively characterize but statistically likely represents a cyst. The gallbladder, spleen, pancreas, and adrenal glands have a normal noncontrast appearance. Both kidneys also have a normal noncontrast appearance. There is no hydronephrosis. There are no radiopaque urinary tract stones. The urinary bladder is incompletely distended. The small and large bowel are normal in course and caliber without obstruction or inflammation. The appendix is not definitively seen but there is a suture line adjacent to the cecum perhaps representing sequela of prior appendectomy. The abdominal aorta is normal in caliber. There is no free perineal fluid or gas. There is no abdominal or pelvic lymphadenopathy. On bone windows, there is no suspicious osseous lesion or fracture. Procedure Note Isai Weiss MD - 01/11/2016 Examination: CT abdomen and pelvis without contrast History: Renal stones Findings: No prior study is available for comparison. Transaxial images of the abdomen and pelvis were obtained without contrast according to renal stone protocol. The visualized portions of the lung bases reveal minimal dependent atelectasis. There is a tiny low-attenuation lesion within the right hemiliver which is too small to definitively characterize but statistically likely represents a cyst. The gallbladder, spleen, pancreas, and adrenal glands have a normal noncontrast appearance. Both kidneys also have a normal noncontrast appearance. There is no hydronephrosis. There are no radiopaque urinary tract stones. The urinary bladder is incompletely distended. The small and large bowel are normal in course and caliber without obstruction or inflammation. The appendix is not definitively seen but there is a suture line adjacent to the cecum perhaps representing sequela of prior appendectomy. The abdominal aorta is normal in caliber. There is no free perineal fluid or gas. There is no abdominal or pelvic lymphadenopathy. On bone windows, there is no suspicious osseous lesion or fracture. IMPRESSION No hydronephrosis or radiopaque urinary tract stones. Wei Merchant DO CT ORDERABLES * (ABNORMAL) CBC W AUTO DIFFERENTIAL (01/11/2016 2:30 PM CDT) Only the most recent of2 resultswithin the time period is included. WBC 7.3 4.4 - 10.7 x10E9/L 01/11/2016 2:35 PM CDT [facility] WBC Corrected x10E9/L 01/11/2016 2:35 PM CDT [facility] RBC 5.47(H) 3.80 - 5.40 x10E12/L 01/11/2016 2:35 PM CDT [facility] Hemoglobin 16.5 12.0 - 17.6 gm/dL 01/11/2016 2:35 PM CDT [facility] Hematocrit 46.8 35.2 - 51.7 % 01/11/2016 2:35 PM CDT [facility] MCV 85.6 80.7 - 98.3 fl 01/11/2016 2:35 PM CDT [facility] MCH 30.2 26.7 - 34.0 pg 01/11/2016 2:35 PM CDT [facility] MCHC 35.3 30.8 - 35.9 gm/dL 01/11/2016 2:35 PM CDT [facility] Platelet Count 213 153 - 416 x10E9/L 01/11/2016 2:35 PM CDT [facility] RDW-CV 11.9(L) 12.1 - 14.9 % 01/11/2016 2:35 PM CDT [facility] MPV 9.8 9.4 - 12.9 fl 01/11/2016 2:35 PM CDT [facility] Neutrophils % 65.7 44.0 - 73.0 % 01/11/2016 2:35 PM CDT [facility] Lymphocytes % 28.0 20.0 - 43.0 % 01/11/2016 2:35 PM CDT [facility] Monocytes % 5.0 5.0 - 13.0 % 01/11/2016 2:35 PM CDT [facility] Eosinophils % 0.5 0.0 - 6.0 % 01/11/2016 2:35 PM CDT [facility] Basophils % 0.7 0.0 - 2.0 % 01/11/2016 2:35 PM CDT [facility] Immature Granulocytes 0.1 0 - 1 % 01/11/2016 2:35 PM CDT [facility] Neutrophil Absolute 4.81 2.01 - 7.14 x10E9/L 01/11/2016 2:35 PM CDT [facility] Lymphocytes Absolute 2.05 1.07 - 3.94 x10E9/L 01/11/2016 2:35 PM CDT [facility] Monocytes Absolute 0.37 0.26 - 1.07 x10E9/L 01/11/2016 2:35 PM CDT [facility] Eosinophils Absolute 0.04 0 - 0.47 x10E9/L 01/11/2016 2:35 PM CDT [facility] Basophils Absolute 0.05 0 - 0.08 x10E9/L 01/11/2016 2:35 PM CDT [facility] Immature Granulocytes Absolute 0.01 0.00 - 0.06 x10E9/L 01/11/2016 2:35 PM CDT [facility] nRBC Auto 0 /100 WBC 01/11/2016 2:35 PM CDT [facility] Blood BLOOD SPECIMEN / Unknown Venipuncture / Unknown 01/11/2016 2:30 PM CDT 01/11/2016 2:33 PM CDT Wei Merchant DO LAB - HEMATOLOGY ORD ERABLES [facility] [address] [place] [address] * COMPREHENSIVE METABOLIC PANEL (01/11/2016 2:30 PM CDT) Only the most recent of2 resultswithin the time period is included. Glucose 83 74 - 106 mg/dL 01/11/2016 2:51 PM CDT [facility] Sodium 137 136 - 145 mmol/L 01/11/2016 2:51 PM CDT [facility] Potassium 4.0 3.5 - 5.1 mmol/L 01/11/2016 2:51 PM CDT [facility] Chloride 104 98 - 107 mmol/L 01/11/2016 2:51 PM CDT [facility] CO2 28 22 - 31 mmol/L 01/11/2016 2:51 PM CDT [facility] Calcium 9.0 8.5 - 10.1 mg/dL 01/11/2016 2:51 PM CDT [facility] Anion Gap 5 5 - 20 mmol/L 01/11/2016 2:51 PM CDT [facility] BUN 15 7 - 21 mg/dL 01/11/2016 2:51 PM CDT [facility] Creatinine 1.10 0.50 - 1.30 mg/dL 01/11/2016 2:51 PM CDT [facility] Alkaline Phosphatase 75 38 - 126 U/L 01/11/2016 2:51 PM CDT [facility] ALT 48 13 - 61 U/L 01/11/2016 2:51 PM CDT [facility] AST 17 5 - 40 U/L 01/11/2016 2:51 PM CDT [facility] Protein Total 7.7 6.4 - 8.2 gm/dL 01/11/2016 2:51 PM CDT [facility] Albumin 4.4 3.4 - 5.0 gm/dL 01/11/2016 2:51 PM CDT [facility] Bilirubin Total 0.8 0.2 - 1.0 mg/dL 01/11/2016 2:51 PM CDT [facility] eGFR by MDRD >60 >60 mL/min/1.7 3m2 01/11/2016 2:51 PM CDT [facility] eGFR by MDRD >60 >60 mL/min/1.7 3m2 01/11/2016 2:51 PM CDT [facility] Blood BLOOD SPECIMEN / Unknown Venipuncture / Unknown 01/11/2016 2:30 PM CDT 01/11/2016 2:33 PM CDT Wei Merchant DO LAB - CHEMISTRY RADU LARKIN [facility] [address] [place] [address] * (ABNORMAL) LIPID PROFILE (01/10/2016 11:24 AM CDT) Cholesterol 179 <200 mg/dL [facility] ACCOUNT BILL Triglycerides 139 <150 mg/dL [facility] ACCOUNT BILL HDL Cholesterol 34(L) >40 mg/dL [facility] ACCOUNT BILL VLDL Calculated 28 <=30 mg/dL [facility] ACCOUNT BILL LDL Calculated 117 <130 mg/dL [facility] ACCOUNT BILL Blood specimen (specimen) BLOOD SPECIMEN / Unknown 01/10/2016 11:24 AM CDT 01/10/2016 4:02 PM CDT Narrative Resulting Agency Comment [facility] [address] [facility] ??[facility] [id number] Kike Guerra Jr., MD LAB - CHEMISTRY ORDERABLES Performing Organization Address City/[facility]/ZIP Co de Phone Number [facility] ACCOUNT BILL [address] [place] [address] * CHLAMYDIA + GC AMPLIFIED PROBE (01/10/2016 11:19 AM CDT) Chlamydia NORM Urine Negative Negative [facility] ACCOUNT BILL GC NORM Urine Negative Negative [facility] ACCOUNT BILL Miscellaneous samples (specimen) URINE / Unknown 01/10/2016 11:19 AM CDT 01/10/2016 5:20 PM CDT Narrative Resulting Agency Comment [facility] [address] [facility] ??[facility] [phone] Kike Guerra Jr., MD LAB - MICROBIOLOGY ORDERABLES [facility] ACCOUNT BILL [address] [place] [address] * URINALYSIS - POINT OF CARE (01/10/2016) Clarity UA POCT unknown Color UA POCT dark yellow Leukocyte UA negative Negative Nitrite UA POCT negative Negative Urobilinogen UA 0.2 0.1 - 1.0 Protein UA POCT negative Negative pH UA 6.5 5.0 - 8.0 pH units Blood UA negative Negtive Specific [place] UA POCT 1.015 1.002 - 1.030 Ketone UA negative Negative Bilirubin UA POCT negative Negative Glucose UA negative Negative Urine specimen (specimen) URINE / Unknown 01/10/2016 Kike Guerra Jr., MD LAB - POINT OF CARE ORDERABLES * CULTURE URINE (01/10/2016 12:00 AM CDT) Urine Culture Routine Final report [facility] ACCOUNT BILL Result 1 No growth [facility] ACCOUNT BILL Urine specimen (specimen) URINE SPECIMEN FROM URINARY BLADDER / Unknown 01/10/2016 01/10/2016 5:20 PM CDT Narrative Resulting Agency Comment [facility] [address] [facility] ??[facility] [phone] Kike Guerra Jr., MD LAB - MICROBIOLOGY ORDERABLES [facility] ACCOUNT BILL [address] [place] [address] * XR CHEST PA AND LATERAL (07/05/2015 1:34 PM CDT) Anatomical Region Laterality Modality Chest Radiographic Ernestina ging 07/05/2015 1:38 PM CDT Impressions 07/05/2015 1:39 PM CDT Clear lungs. Narrative 07/05/2015 1:39 PM CDT Examination: Chest 2 views History: Cough and fever, chest pain Findings: 2 views of the chest were performed without prior comparison. There is no pneumonic consolidation, pleural effusion, or pneumothorax. Heart size appears normal. Procedure Note Tim Lund MD - 07/05/2015 Examination: Chest 2 views History: Cough and fever, chest pain Findings: 2 views of the chest were performed without prior comparison. There is no pneumonic consolidation, pleural effusion, or pneumothorax. Heart size appears normal. IMPRESSION Clear lungs. Art Plummer DIESEL MAINTENANCE ELECTRICIAN-SUPERINTENDENT STATIONS DIAGNOSTIC IMAGI NG ORDERABLES Care Teams Supply Officer Relationship Specialty Start Date End Date Ronald Caldwell MD PCP - General Family Medicine 06/24/18
--- OUTSIDE RECORDS SUMMARY | 2024-04-30 04:22 | XMS_ITS | Referral Summary ---
Author Organization [facility] Address [address] [address] Phone Care Team Providers Care Edger Tailer Name Role Phone Soto Rehman MD Primary Care Provider + [phone] Allergies No known active allergies Medications selenium [...] cancer. 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 Maternal great grandmother had colon cancer Irritable bowel syndrome with constipation 07/23 Assessment & Plan (06/11/2019 9:53 AM AUTOMOBILE BODY REPAIRER): Stay hydrated. Colonoscopy Linzess 290mcg daily causes him to be sleepy. Give samples of linzess 145mcg daily and linzess 72mcg daily. Take on an empty stomach and wait 30min before having breakfast. Add metamucil 1 tablespoonful daily. Assessment & Plan (05/21/2019 10:21 AM AUTOMOBILE BODY REPAIRER): New rx given today and instructed on [...] 08/29/2017 Assessment & Plan (06/11/2019 9:36 AM AUTOMOBILE BODY REPAIRER): Avoid provocative foods: citrus, alcohol, coffee, chocolate, mints. Avoid smoking. Maintain a healthy weight. Eat smaller meals, no eating three hours prior to bedtime. Assessment & Plan (06/30/2018 4:03 PM CDT): Continue present meds and f/u 6 months Assessment & Plan (05/15/2018 1:57 PM AUTOMOBILE BODY REPAIRER): Avoid provocative foods: citrus, alcohol, coffee, chocolate, [...] (06/11/2019): Added automatically from request for surgery [id number] BMI 30.0-30.9,adult 05/21/2019 03/21/20 21 Assessment & Plan (06/11/2019 9:36 AM AUTOMOBILE BODY REPAIRER): Maintain a healthy weight Assessment & Plan (05/21/2019 10:21 AM AUTOMOBILE BODY REPAIRER): Pt has been advised on diet Contact [...] 03/21/2021 Assessment & Plan (05/15/2018 2:14 PM AUTOMOBILE BODY REPAIRER): EGD with biopsies for H pylori and to exclude peptic ulcer disease Hydrogen lactulose breath testing in future to check for small intestinal bacterial overgrowth. Check Vitamin D Check TTG IgA Nausea and vomiting in adult patient 05/15/2018 03/21/2021 Assessment & Plan (05/15/2018 2:01 PM AUTOMOBILE BODY REPAIRER): Check TTG IgA EGD with biopsies for H pylori and to exclude peptic ulcer disease Epigastric abdominal pain 05/15/2018 Assessment & Plan (05/15/2018 2:01 PM AUTOMOBILE BODY REPAIRER): EGD CBC, CMP, amylase and lipase Thumb [...] Refused),08/29/2017(Deferred: Patient Refused),01/30/2017(Deferred: Patient Refused) Tdap 01/27/2018,08/29/2008 Social History Tobacco Use Types Packs/Day Years [...] on file Legal Sex Male 3:24 AM AUTOMOBILE BODY REPAIRER Gender Identity Male 03/21/2021 6:54 AM AUTOMOBILE BODY REPAIRER Sexual Orientation Straight 03/21/2021 6: 54 AM AUTOMOBILE BODY REPAIRER Last Filed Vital Signs Vital Sign Reading [...] 12/24/2023 3:25 PM CDT Plan of Treatment Not on file Insurance [facility] CHOICE PLUS [facility] HMO/PPO Address: [address] [place] [address] [facility] CHOICE PLUS [facility] HMO/PPO Address: [address] [place] [address] [facility] [employer] CHOICE PLUS [facility] HMO/PPO Address: [address] [address] [place] [address] [employer] [place] [address] [facility] * Guarantor: [facility] Account Type Relation to Patient Date of Phone Billing Address Donor Other Advance Directives For more information, please contact: [phone] * Full Code (Latest Code Status on File) Date Activated Date Inactivated Comments 05/28/2018 7:50 AM 05/28/2018 1:55 PM Care Teams Edger Tailer Relationship Specialty Start Date End Date Soto Rehman MD [address] [place] [address] PCP - General Internal Medicine 11/16/23
--- OUTSIDE RECORDS SUMMARY | 2024-04-30 04:22 | XMS_ITS | Clinical Summary ---
Author Organization [facility] Address [address] [facility] [place] [address] Care Team Providers Care Intensivist Name Role Phone Ronald Caldwell MD Primary Care Provider Eugene graff Source Comments [facility],non-owned Affiliates and Associated Physician Practices is amultiple site organization consisting of ambulatory clinics and hospital sitesin [place], [place], [place] and [place]. This disclosure is being madepursuant to the Care Everywhere program and may not contain all information available regarding this patient. Last updated 17.[facility] Allergies No known active allergies Medications * Be aware that medications may not be up to date on this document. Alwaysverify current medications with the patient. Medication Sig Dispensed Refills Start Date End Date Status omeprazole (PRILOSEC) 20 MG capsule TAKE ONE CAPSULE BY MOUTH DAILY BEFORE BREAKFAST 90 capsule 1 08/05/2017 Active amphetamine-dextroa mphetamine XR 24hr (ADDERALL XR) 15 MG capsule Take 20 mg by mouth every morning Active vitamin D, ergocalciferol, (DRISDOL) 83604 UNITS capsule Take 50,000 Units by mouth every 7 days Active Active Problems Problem Noted Date Diagnosed Date Gastroesophageal reflux disease without esophagi tis 05/07/2016 Nephrolithiasis 01/11/2016 Family History Medical History Relation Name Comments [place] Maternal Grandfather Diabetes Mother Fibromyalgia Mother GERD - Gastroesophageal Reflux Disease Mother Relation Name Status Comments Maternal Grandfather Mother Social History Tobacco Use Types Packs/Day Years Used Date Smoking Tobacco: Every Day Smokeless Tobacco: Never Tobacco Cessation:Counseling Given: Yes Alcohol Use Standard Drinks/Week Comments Yes 0 (1 standard drink = 0.6 oz pur e alcohol) Occ Sex and Gender Information Value Date Recorded Sex Assigned at Not on file Gender Identity Male 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 Sexual Orientation Not on file Last Filed [...] Mass Index 27.32 06/24/2018 2:12 PM CDT Plan of Treatment Health Maintenance Due Date Last Done Comments HIV SCREENING 2003 HEPATITIS C SCREENING 05/28/2006 DTAP/TDAP/TD VACCINES (1 - Tdap) 2007 HEPATITIS B VACCINE (1 of 3 - 19+ 3-dose series) 2007 PNEUMOCOCCAL VACCINE (1 of 2 - PCV) 2007 COVID-19 VACCINE (1 - 2023-2 5 season) 2023 INFLUENZA VACCINE (#1) 2023 01/06/2019 DEPRESSION SCREENING 04/08/2024 ZOSTER VACCINE (1 of 2) 2038 HIB VACCINE Aged Out No longer eligi ble based on patient's age to complete this topic HPV VACCINE Aged Out No longer eligi ble based on patient's age to complete this topic MENINGOCOCCAL (Group B) VACCINE Aged Out No longer eligible based on patient's age to complete this topic MENINGOCOCCAL VACCINE Aged Out No shahab cristopher eligible based on patient's age to complete this topic Care Teams Intensivist Relationship Specialty Start Date End Date Ronald Caldwell MD PCP - General Family Medicine 06/24/18
--- OUTSIDE RECORDS SUMMARY | 2024-04-30 04:22 | XMS_ITS | Clinical Summary ---
Author Organization [facility] Address [address] [place] [address] Phone Care Team Providers Care Preventive Medicine Officer Name Role Phone Ronald Caldwell MD Primary Care Provider Eugene labakash Allergies No known active allergies Medications omeprazole (PriLOSEC) 20 MG CAPSULE DELAYED RELEASE TAKE 1 CAPSULE(20 MG) BY MOUTH DAILY 08/05/2017 Active Fluticasone Propionate (FLONASE NA) by Nasal route. Active Active Problems No known active problems Family History Medical History Relation Name Comments Diabetes Mother Relation Name Status Comments Mother Social History Tobacco Use Types Packs/Day Years Used Date Smoking Tobacco: Former Smokeless Tobacco: Former PHQ-2 Answer Date Recorded Total Score - Questions 1-9 0 01/06 Sex and Gender Information Value Date Recorded Sex Assigned at Not on file Legal Sex Male 8:39 PM CDT Gender Identity Not on file Sexual Orientation Not on file Last Filed Vital Signs Vital Sign Reading Time Taken Comments Blood Pressure - - Pulse 71 01/22/2020 10:14 AM CDT Temperature - - Respiratory Rate - - Oxygen Saturation 98% 01/22/2020 10:14 AM CDT Inhaled Oxygen Concentration - - Weight 95.4 kg (210 lb 6.4 oz) 01/22/2020 10:14 AM CDT Height 175.3 cm (5' 9 ) 01/22/2020 10:14 AM CDT Body Mass Index 31.07 01/22/2020 10:14 AM CDT Plan of Treatment Health Maintenance Due Date Last Done Comments Hepatitis C Virus (HCV) Screening 1988 TdaP Immunization 1988 Hepatitis B Immunization (1 of 3 - 19+ 3-dose series) 2007 Influenza Immunization (#1) 2023 SARS-COV-2 Immunization (2023- season) 2023 Respiratory Syncytial Virus (RSV) Immunization (Adult) (1 - 1-dose 75+ series) 2063 Meningococcal Immunization (ACWY) Aged Out No longer eligible based on patient's age to complete this topic Pneumococcal Immunization Combined Aged Out No longer eligible based on patient's age to complete this topic Rotavirus Immunization Aged Out No lo nger eligible based on patient's age to complete this topic Care Teams Preventive Medicine Officer Relationship Specialty Start Date End Date Ronald Caldwell MD PCP - General Family Medicine 01/22/20
--- OUTSIDE RECORDS SUMMARY | 2024-04-30 04:22 | XMS_ITS | Referral Summary ---
Author Organization [facility] Address [address] [place] [address] Care Team Providers Care Forestry Workers Name Role Phone Ronald Caldwell MD Primary Care Provider Eugene graff Source Comments [facility],non-owned Affiliates and Associated Physician Practices is amultiple site organization consisting of ambulatory clinics and hospital sitesin [place], [place], [place] and [place]. This disclosure is being madepursuant to the Care Everywhere program and may not contain all information available regarding this patient. 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
== END 2024-04-26 12:31 | disposition home or self-care (01) | DRG 205 ==
LOC: ANHED 04-24 00:22 → ANH3MEDSUR 04-24 01:18
PROVIDERS: Emergency Medicine; Admitting Provider Internal Medicine; Emergency Provider Physician Assistant; PCP Physician Assistant; Visit Provider Nurse Practitioner Family
DX: J95.88 Other intraoperative complications of respiratory system, not elsewhere classified (principal); J69.0 Pneumonitis due to inhalation of food and vomit; D72.829 Elevated white blood cell count, unspecified; K64.8 Other hemorrhoids; Z86.16 Personal history of COVID-19; Z87.891 Personal history of nicotine dependence; Z98.890 Other specified postprocedural states
CPT/HCPCS: 36415; 71046; 71250; 80053; 81003; 83605; 83735; 85025; 87040; 87637; 94640; 96361; 96365; 99291; A9270; G0378; J0295; J7030

== ENCOUNTER 2025-02-24 01:00 | Day surgery (SDC) | payer OTHER, SELFPAY ==
[2025-02-11 10:32] VITALS: BMI 35.4
--- NOTE | 2025-02-11 10:52 | PC.NURSE ---
[facility] has started construction of its new state of the art ER which will open Spring 2026. With this, we anticipate parking may be a challenge for some our surgical patients and families. Parking spaces are limited but are available for all Surgical, obstetrics, and ER patients sharing this lot. If you arrive and find you are having a hard time finding a parking space, please note that we understand the challenges, please drive around the hospital and park near Hospital Entrance 1. When you enter this entrance, you can ask a volunteer to direct or take you back to the surgical waiting area to check in. We appreciate everyone?s understanding of these expected challenges while we build for your future. Report to the Outpatient Waiting Room, entrance under the green pavilion located off [address], at 0700 on 02-24-25. Planned Procedure Time: 0900.? Time changes happen often and if your time is changed the preop area will call you the afternoon before. - You and your visitor will be asked to self-screen and do not enter if you have any COVID symptoms. Please call surgeon if you need to reschedule. - A mask is optional within the hospital at this time. Patients may have clear liquids (water, carbonated beverages, clear teas, apple juice) until 3 hours prior to surgery with a maximum of 20 ounces. 0600 - No food from midnight until time of surgery and no smoking, or chewing tobacco (or any form of nicotine). No chewing gum, candy or mints. - Infants may have breast milk until 4 hours before surgery, formula 6 hours prior to surgery. - Children will be allowed to drink immediately following surgery.? If applicable, please bring a bottle or sippy cup to assist with drinking. Juice, water, soda, and popsicles are readily available.? For infants on formula, please bring formula the day of surgery.? Pacifiers are allowed. Take only the following medications with a SIP of water on the morning of surgery: None DO NOT STOP ANY OF YOUR OTHER PRESCRIPTION MEDICATIONS PRIOR TO SURGERY EXCEPT THE FOLLOWING Hold all vitamins and supplements for 3 days per anesthesiologist. (02-21-25) Medications to discontinue per physician: N/A Please no make-up, nail yakut, hairspray, perfume, deodorant, or body powder the day of surgery.? No jewelry (including any body piercings) or valuables the day of surgery, leave them at home.? Please take a shower or bath the night before, or the morning of, surgery with an antibacterial soap.? Wear comfortable, loose fitting clothing.? Children are encouraged to wear pajamas. - Jewelry must be removed prior to entering the operating room.? Rings and piercings that are not removed may be cut off. - The hospital will not accept responsibility for valuables.? - Please leave all valuables, including medications, at home the day of surgery. If you are going home after surgery, a licensed tractor sweeper driver must drive you home.? - NO public transportation without another adult if you receive anesthesia. - We recommend that an adult stay with you for 24 hours following discharge. - We also recommend that you do not drive, make important decision, drink alcoholic beverages, or take any drugs that were not prescribed by your health care provider for at least 24 hours after your discharge time. For Pediatric surgeries, we recommend two adults accompany the child home. Follow any additional instructions given to you from your surgeon. Telephone instructions given to Scotty Egan and asked if any additional questions and then verbalized understanding. Patient advised to call surgeon office or pre surgery nurse liaison [phone] if any additional questions.
[2025-02-24] VITALS (9 sets, daily range): BP systolic 98–125; BP diastolic 55–84; PULSE 61–85; RESP 12–20; TEMP 36.4; O2SAT 95–98; BMI 35.5
[2025-02-24] MEDS: LACTATED RINGERS 1,000 ML 30 ML IV CONT ×3 (07:45→09:12)
[2025-02-24] MEDS: ACETAMINOPHEN 500 MG TABLET 1000 MG PO (07:45)
--- NOTE | 2025-02-24 07:46 | WPDHPUPDATE1 ---
History and Physical Update Update Date/Time: 02/24/25 07:46 History and Physical has been reviewed, including an updated exam of the patient. There are NO changes in the patient's condition. Risks, benefits, and alternatives have been discussed and questions answered. Patient agrees to proceed with procedure.
--- NOTE | 2025-02-24 08:14 | P.PNAN_ITS ---
Anes - Initial Pre Proc Eval Procedure: Operation Date: 02/24/25 09:00 Proposed Procedures p Bilateral Vasectomy - Jovan Burgess MD Date/Time: 02/24/25 08:14 Surgeon: Jovan Burgess MD Pre Op Diagnosis: Male court Patient Data Age: 34 Gender: M Height: 1.75 m Weight: 108.86 kg Allergies Allergy/AdvReac Type Severity Reaction Status Date / Time No Known Allergies Allergy Verified 02/11/25 10:27 Home Medications ?Medication ?Instructions ?Recorded ?Confirmed ?Type famotidine 20 mg tablet (Acid 20 mg PO BID 04/09/24 History Controller) guaifenesin 600 mg tablet, 600 mg PO Q12HR PRN cough 1 04/13/24 02/11/25 History extended release 12 hr (Mucus Relief ER) multivitamin (One Daily 1 tablet PO DAILY 02/11/25 1 04/13/24 History Multivitamin tablet) Patient hx anesthesia problems: other (Aspirated during colonoscopy early 2024, had preop N/V, readmitted for aspiration pneumonia per pt. ) Family hx anesthesia problems: none Results Review: All pre-operative results and documents have been reviewed as part of the pre- operative evaluation. FORMERLY [facility], [facility] Past Medical History Medical History Colon polyp Pneumonia due to COVID-19 virus Post-COVID syndrome COVID-19 Community acquired pneumonia Hydrocele Surgical History Surgical History History of tonsillectomy H/O knee surgery Family History Family History Father Leukemia Mother Fibromyalgia Social History Social History Smoking packs per day: 0.25 Smoking cigarettes per day: 5.0 Years smoked: 5 Smoking pack-years: 1.25 Smoking status: Current every day smoker Tobacco type: cigarettes, e-cigarettes/vaping and smokeless tobacco Smokeless tobacco user: other Second hand tobacco smoke exposure: No Alcohol intake: current Alcohol use details: very rarely Substance use: former Substance use type: marijuana Do You Feel Safe in your Home?: Yes Lack of Transportation: YES Lack of Food: Never True Current Housing: I Have Housing Concerned About Future Housing: YES Difficulty Paying Gas/Electric Bills: YES Difficulty Paying for Meds: YES Currently Unemployed: YES Education: High School Diploma/GED Difficulty w/ Childcare or Family Care: No Living arrangements: with family Gender identity (if verbalized by the patient): Male Spiritual care concerns: No Anes - Eval Final PreProcedure Day of Procedure 02/24/25 08:14 Patient weight: obese Lungs: normal air movement Airway: Mallampati scale class II Neurological: alert and oriented Last oral intake: >/= 8 hours ASA classification: II Emergent: no Anesthetic plan: proceed Anesthesia type and monitoring: general LMA and standard monitoring Results Review: All pre-operative results and documents have been reviewed as part of the pre- operative evaluation. BMI 35, overall good exercise tolerance, no cp or sob w 1-2 fos. Informed Consent: The patient's anesthetic plan and its attendant risks and benefits were discussed with the patient/family/POA. Questions were solicited and answers provided to the satisfaction of the patient/family/POA.
[2025-02-24] MEDS: ceFAZolin 2 GM in SODIUM CHLORIDE 0.9% IV 50 ML 100 ML IVPB (10:06)
--- NOTE | 2025-02-24 10:30 | S_PTH ---
PATIENT: Magdy Egan LOC: [facility] U#:[id number] AGE/SX: 34/M ROOM: RE02/24/[address]: Jovan Burgess MD : 1990 BED: DIS: 02/24/2025 SPEC #: [id number] RECD: 02/24/25 11:19 STATUS: ADRIANE REJaki #: [id number] RO: 02/24/25 10:[address]: Jovan Burgess DEPT: [facility] Surgical RECD BY: Kenyatta Childs ENTERED: 02/24/25 11:20 SP TYPE: Surgical OTHR DR: Rebeca Hernández, PA-C Tissues: A - Vas Deferens B - Vas Deferens Procedures: Gross Exam Level 1
[2025-02-24] MEDS: BUPivacaine HCL 0.5% 10 ML AMP INFILTRATE (10:34)
--- NOTE | 2025-02-24 10:56 | W.PM.PROC2 ---
Procedure Note - Detailed Date of Procedure 02/24/25 Pre-op Diagnosis Kannan yun Post-op Diagnosis Same Procedure Performed Bilateral vasectomy Surgeon Jovan Burgess MD Anesthesia General Description of Procedure Informed consent is obtained. Patient taken to room. He was given preoperative IV antibiotics. He was induced with anesthesia. He was prepped and draped in normal sterile fashion. The patient had a history of right pediatric testicular surgery and the right testicle sat in the upper scrotum. I was able to manipulate the vas towards midline and then grasped with a clamp. The skin over the vas deferens was opened sharply. We then the vas deferens away from surrounding structures. A 2cm portion of vas was excised. We cauterized the ends and a 3-0 chromic suture was placed on each end. We then performed a fascial interposition with 3-0 chromic suture. Through the same opening we then identified the left vas deferens which was grasped and from surrounding structures. A 2cm portion of vas was excised. We cauterized the ends and a 3-0 chromic suture was placed on each end, followed by a fascial interposition with 3-0 chromic suture. There was good hemostasis. Due to the small size of the opening skin was not closed. A sterile dressing was placed. A scrotal supporter was placed. Patient was taken to PACU stable condition Pathology Yes Complications No immediate complications Condition Stable Disposition PACU
[2025-02-24] MEDS: fentaNYL CITRATE INJ (*CRX) 100 MCG/2 ML VIAL 25 MCG IV PUSH ×4 (11:16→11:35)
[2025-02-24] MEDS: oxyCODONE HCL (*CRX) 5 MG TAB IR PO (12:23)
== END 2025-02-24 12:35 | disposition home or self-care (01) ==
PROVIDERS: PCP Physician Assistant; Visit Provider Urology
PROC: (CPT 55250; principal; 2025-02-24 09:00)
DX: Z30.2 Encounter for sterilization (principal); F17.290 Nicotine dependence, other tobacco product, uncomplicated; F12.90 Cannabis use, unspecified, uncomplicated; E66.9 Obesity, unspecified; Z68.35 Body mass index [BMI] 35.0-35.9, adult; Z98.890 Other specified postprocedural states; Z86.0100 Personal history of colon polyps, unspecified; Z80.6 Family history of leukemia
CPT/HCPCS: 55250; 88300; J0690; A9270; J1100; J2250; J2405; J2704; J3010; J7120

== ENCOUNTER 2025-03-02 18:22 | Emergency (ER) | payer OTHER, SELFPAY ==
--- NOTE | ~2025-03-02 | US_ITS ---
EXAMINATION: Ultrasound scrotum with Doppler DATE: 03/02/2025. INDICATION: Scrotal swelling. Left-sided testicular pain. TECHNIQUE: High resolution ultrasound with Doppler study of the scrotum were obtained. COMPARISON: None. FINDINGS: No intratesticular lesions. Symmetric color perfusion of both testes. No extratesticular mass or fluid collections are seen. IMPRESSION: 1. No focal intratesticular lesions. Color perfusion of both testes are noted. Reviewed, dictated and finalized at location T. MANAGER
[2025-03-02 18:25] VITALS: BP 156/94; PULSE 80; RESP 16; TEMP 36.4; O2SAT 100
--- OUTSIDE RECORDS SUMMARY | 2025-03-02 18:25 | XMS_ITS | Clinical Summary ---
Author Organization [facility] Address [address] [address] Phone Care Team Providers Care Gang Vibrator Operator Name Role Phone Soto Rehman MD Primary Care Provider [phone] Allergies No known active allergies Medications selenium sulfide 2.5 % lotion Apply topically daily as needed for irritation 118 mL 2 05/21/19 Active Additional Information Patient not taking.Reported on 09/24/2024 dextroamphetamine- amphetamine (ADDERALL) 5 mg tablet Take 1 tablet (5 mg total) by mouth 2 (two) times a day 60 tablet 05/25/19 Active Additional Information Patient not taking.Reported on 09/24/2024 linaCLOtide (LINZESS) 145 mcg capsule Take 1 [...] nightly 30 tablet 2 04/12/19 22 Active Additional Information Patient not taking.Reported on 09/24/2024 multivitamin capsule Take 1 capsule by mouth [...] Active Additional Information Patient not taking.Reported on 09/24/2024 ondansetron ODT (ZOFRAN-ODT) 4 mg disintegrating tablet Dissolve 1 tablet oral every 4 hours as needed for nausea or vomiting. 15 tablet 02/05/20 22 Active Additional Information Patient not taking.Reported on 09/24/2024 HYDROcodone-acetam inophen (NORCO) 5-325 mg per tabletIndications: Pain Take 1 tablet by mouth every 6 (six) hours as needed for pain 12 tablet 02/05/20 22 Active Additional Information Patient not taking.Reported on 09/24/2024 famotidine (PEPCID) 20 mg tablet Take 1 tablet (20 mg total) by mouth 2 (two) times a day 60 tablet 2 05/03/19 23 Active Additional Information Patient not taking.Reported on 09/24/2024 benzonatate (TESSALON) 200 mg capsuleIndications :Acute cough Take 1 capsule (200 mg total) by mouth 3 (three) times a day as needed for cough 30 capsule 11/16/19 24 Active Additional Information Patient not taking.Reported on 09/24/2024 promethazine (PHENERGAN) 1.25 mg/mL syrupIndications:Corey elissa Take 5 mL (6.25 mg total) by mouth 4 (four) times a day as needed for nausea or vomiting 240 mL 12/24/19 24 Active Additional Information Patient not taking.Reported on 09/24/2024 Active Problems Problem Noted Date Diagnosed Date Family history of colon cancer 06/11/2019 Overview (06/15/2019): Repeat colonoscopy in 5 years (June 2024) for screening purposes. Maternal great grandfather had colon cancer and he in his 50s. Maternal great grandmother had colon cancer. Assessment & Plan (06/11/2019 9:44 AM BIOLOGY ADJUNCT INSTRUCTOR): Colonoscopy Maternal great grandfather had colon cancer and he in his 50s. Maternal great grandmother had colon cancer Irritable bowel syndrome with constipation 07/23 Assessment & Plan (06/11/2019 9:53 AM BIOLOGY ADJUNCT INSTRUCTOR): Stay hydrated. Colonoscopy Linzess 290mcg daily causes him to be sleepy. Give samples of linzess 145mcg daily and linzess 72mcg daily. Take on an empty stomach and wait 30min before having breakfast. Add metamucil 1 tablespoonful daily. Assessment & Plan (05/21/2019 10:21 AM BIOLOGY ADJUNCT INSTRUCTOR): New rx given today and instructed on [...] 08/29/2017 Assessment & Plan (06/11/2019 9:36 AM BIOLOGY ADJUNCT INSTRUCTOR): Avoid provocative foods: citrus, alcohol, coffee, chocolate, mints. Avoid smoking. Maintain a healthy weight. Eat smaller meals, no eating three hours prior to bedtime. Assessment & Plan (06/30/2018 4:03 PM CDT): Continue present meds and f/u 6 months Assessment & Plan (05/15/2018 1:57 PM BIOLOGY ADJUNCT INSTRUCTOR): Avoid provocative foods: citrus, alcohol, coffee, chocolate, [...] (06/11/2019): Added automatically from request for surgery [id number] BMI 30.0-30.9,adult 05/21/2019 03/21/20 21 Assessment & Plan (06/11/2019 9:36 AM BIOLOGY ADJUNCT INSTRUCTOR): Maintain a healthy weight Assessment & Plan (05/21/2019 10:21 AM BIOLOGY ADJUNCT INSTRUCTOR): Pt has been advised on diet Contact [...] 03/21/2021 Assessment & Plan (05/15/2018 2:14 PM BIOLOGY ADJUNCT INSTRUCTOR): EGD with biopsies for H pylori and to exclude peptic ulcer disease Hydrogen lactulose breath testing in future to check for small intestinal bacterial overgrowth. Check Vitamin D Check TTG IgA Nausea and vomiting in adult patient 05/15/2018 03/21/2021 Assessment & Plan (05/15/2018 2:01 PM BIOLOGY ADJUNCT INSTRUCTOR): Check TTG IgA EGD with biopsies for H pylori and to exclude peptic ulcer disease Epigastric abdominal pain 05/15/2018 Assessment & Plan (05/15/2018 2:01 PM BIOLOGY ADJUNCT INSTRUCTOR): EGD CBC, CMP, amylase and lipase Thumb [...] 03/21/2021 Overview (07/12/2016): Upper respiratory infection Immunizations Immunization Administration Dates Next Due Hep B, Adolescent [...] Medical History Relation Name Comments Diabetes Mother Juliannwhitney Amado Hypertension Mother Juliannwhitney Amado Obesity Mother Juliann Ingris Colon cancer Other Relation Name Status Comments Mother Juliann Amado Other great grandmoth er on paternal side [...] on file Legal Sex Male 3:24 AM BIOLOGY ADJUNCT INSTRUCTOR Gender Identity Male 03/21/2021 6:54 AM BIOLOGY ADJUNCT INSTRUCTOR Sexual Orientation Straight 03/21/2021 6: 54 AM BIOLOGY ADJUNCT INSTRUCTOR Last Filed Vital Signs Vital Sign Reading Time Taken Comments Blood Pressure 124/72 09/24/2024 1:55 PM CDT Pulse 78 09/24/2024 1:55 PM CDT Temperature 36.6 C (97.8 F) 09/24/2024 1:55 PM CDT Respiratory Rate 16 09/24/2024 1:55 PM CDT Oxygen Saturation 98% 09/24/2024 1:55 PM CDT Inhaled Oxygen Concentration - - Weight 112 kg (247 lb) 09/24/2024 1:55 PM CDT Height 172.7 cm (5' 8) 09/24/2024 1:55 PM CDT Body Mass Index 37.56 09/24/2024 1:55 PM CDT Plan of Treatment Health Maintenance Due Date Last Done Comments Hepatitis C Screening 1988 Varicella Vaccines (1 of 2 - 13+ 2-dose series) 2001 Regular Well Visit/Exam 18-64 2006 HPV Vaccines (1 - 3-dose SCDM series) 2015 Depression Screening 05/21/2020 05/21/2019, 10/13/2018, 07/23/2018, Additional history exists Influenza Vaccine (#1) 2024 01/06/2019 DTaP/Tdap/Td Vaccine (3 - Td or Tdap) 01/28/2028 01/27/2018, 08/29/2008 Hepatitis B Screening Completed 08/07/1999 , 03/29/1999, 02/21/1999 Pneumococcal vaccine <65 Aged Out No longer eligible based on patient's age to complete this topic Insurance [facility]PPO Address: [facility] [address] [place] [address] [facility] H[facility]/PPO Address: [address] [address] [place], [place] [address] [place] [address] HMO [facility] HMO/PPO Address: [facility] [id number] [place] [address] [facility] HMO/PPO Address: [address] HMO [facility] HMO * Guarantor: [facility] Account Type Relation to Patient Date of Phone Billing Address Donor Other Advance Directives For more information, please contact: [phone] * Full Code (Latest Code Status on File) Date Activated Date Inactivated Comments 05/28/2018 7:50 AM 05/28/2018 1:55 PM Care Teams Gang Vibrator Operator Relationship Specialty Start Date End Date Soto Rehman MD PCP - General Internal Medicine 11/16/23
--- OUTSIDE RECORDS SUMMARY | 2025-03-02 18:25 | XMS_ITS | Clinical Summary ---
Author Organization [facility] Address [address] [place] [address] Care Team Providers Care Timber Poisoner Name Role Phone Ronald Caldwell MD Primary Care Provider Eugene graff Source Comments [facility],non-owned Affiliates and Associated Physician Practices is amultiple site organization consisting of ambulatory clinics and hospital sitesin [place], [place], [place] and [place]. This disclosure is being madepursuant to the Care Everywhere program and may not contain all information available regarding this patient. Last updated 17.[facility] Allergies No known active allergies Medications * Be aware that medications may not be up to date on this document. Alwaysverify current medications with the patient. omeprazole (PRILOSEC) 20 MG capsule TAKE ONE CAPSULE BY MOUTH DAILY BEFORE BREAKFAST 90 capsule 1 8 Active amphetamine-dex troamphetamine XR 24hr (ADDERALL XR) 15 MG capsule Take 20 mg by mouth every morning Active vitamin D, ergocalciferol, (DRISDOL) 30748 UNITS capsule Take 50,000 Units by mouth every 7 days Active Active Problems Problem Noted Date Diagnosed Date Gastroesophageal reflux disease without esophagi tis 05/07/2016 Nephrolithiasis 01/11/2016 Family History Medical History Relation Name Comments IN Maternal Grandfather Diabetes Mother Fibromyalgia Mother GERD [...] at Not on file Legal Sex Male 10:38 AM CDT Gender Identity Male 05/11/2017 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 Sexual Orientation Not on file Last Filed Vital Signs Vital Sign Reading Time Taken Comments Blood Pressure 116/78 06/24/2018 2:12 PM CDT Pulse 76 06/24/2018 2:12 PM CDT Temperature 36.8 C (98.3 F) 06/24/2018 2:12 PM CDT Respiratory Rate 17 06/24/2018 2:12 PM CDT Oxygen Saturation 99% 06/24/2018 2:12 PM CDT Inhaled Oxygen Concentration - - Weight 83.9 kg (185 lb) 06/24/2018 2:12 PM CDT Height 175.3 cm (5' 9) 06/24/2018 2:12 PM CDT Body Mass Index 27.32 06/24/2018 2:12 PM CDT Plan of Treatment Health Maintenance Due Date Last Done Comments HIV SCREENING 2003 HEPATITIS C SCREENING 05/28/2006 DTAP/TDAP/TD VACCINES (1 - Tdap) 2007 HEPATITIS B VACCINE (1 of 3 - 19+ 3-dose series) 2007 PNEUMOCOCCAL VACCINE (1 of 2 - PCV) 2007 HPV VACCINE (1 - 3-dose SCDM series) 2015 DEPRESSION SCREENING 04/08/2024 COVID-19 VACCINE (1 - 2024-2 6 season) 2024 INFLUENZA VACCINE (#1) 2024 01/06/2019 ZOSTER VACCINE (1 of 2) 2038 HIB VACCINE Aged Out No longer eligi ble based on patient's age to complete this topic MENINGOCOCCAL (Group B) VACC INE SHARED DECISION-MAKING Aged Out No longer eligibl e based on patient's age to complete this topic MENINGOCOCCAL GROUPS A/C/Y/W VACCINE Aged Out No longer eligible b ased on patient's age to complete this topic Care Teams Timber Poisoner Relationship Specialty Start Date End Date Ronald Caldwell MD PCP - General Family Medicine 06/24/18
--- OUTSIDE RECORDS SUMMARY | 2025-03-02 18:25 | XMS_ITS | Data Portability ---
Author Organization [facility] CODYDevi Address [address] [place] [address] Care Team Providers Care Field Service Representative Name Role Phone MILLYREBECA CENTENO Primary Care Provider Unavailab le Assessment No assessment recorded. Plan of Treatment Reminders Order Date Submit Date Provider Last Modified By Organization Details Last Modified Time Details Appointments None recorded. Lab TSH + free T4, serum 2023 [email or web address], [address], [place], [address], 11:00:51 lipid panel, serum 2023 024 [email or web address] [facility], [address], [place], [address], 11:00:50 CBC w/ auto diff 2023 024 [email or web address], [address], [place], [address], 11:00:50 CMP, serum or plasma 2023 024 [email or web address] [facility], [address], [place], [address], 4 11:00:50 vitamin B12 + folate, serum or blood 2023 024 [email or web address], [address], [place], [address], 4 11:00:51 testosteron e, total, serum 2023 [facility], [address], [place], [address], 4 11:00:51 HbA1c (hemoglobin A1c), blood 2023 [facility], [address], [place], [address], 4 11:00:51 insulin, serum 2023 [facility], [address], [place], [address], 4 11:00:51 Referral otolaryngol ogist referral 2023 [facility], [address] [place], [address], 4 08:27:45 electronic tech referral [email or web address] [place] [address] [facility], [address] [place], [address], 5 16:19:47 Procedures None recorded. Surgeries None recorded. Imaging XR, chest, 2 view [address] [facility], [address], [place], [address], 5 09:44:39 CT, sinuses, w/o contrast 2023 024 [facility], [address], [place], [address], 4 12:40:08 Medication Orders azithromyci n 250 mg tablet 2024 025 [id number], [address] [place], [place], [id number], 14:41:18 Patient TargetsNo targets recorded. 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 [address] 2022 Vin Moraes [facility], [place], [address], 05/06/2024 14:41:28 04/24/19 25 04/23/2024 XR, chest , 2 view No observ ation record ed. [address] [facility] [address], [place], [address], 05/06/2024 14:41:29 04/24/19 25 04/23/2024 CT, chest , w/o contr ast No observ ation record ed. [address] [facility] [address], [place], [address], 05/06/2024 14:28:31 Result Notes None recorded. Problems Name Problem SNOMED Code Status Onset Date Resolution Date Notes Provider Name and Address Organization Details Recorded Time Body mass index 30+ - obesity 502807072 Active 024 Jass Ochoa MA null, [place] [facility] 4 10:13:56 Obesity 181240536 Active 024 STAS Dias Attn: Denver ferrari,[address] [place], [place], [address] [place] [address], [place] [facility] 4 10:56:31 Bilateral hearing loss 58779782 Active 024 STAS Dias Attn: [place] g,[address] [place], [place], [address] [place] [address] 2, [place] [facility] 4 10:56:33 Recurrent sinusitis 849241149 Active 024 STAS Dias Attn: [place] g,[address] [place], [place], [address] [place] [address], [place] [facility] 4 10:56:38 Parietal headache 238258519 Active 024 STAS Dias Attn: [place] g,[address] [place], [place], [address] [place] [address], [place] [facility] 4 10:56:39 Fatigue 12096380 Active 024 STAS Dias Attn: Denver ferrari,[address] [place], [place], [address] [place] [address], [place] [facility] 4 23:31:10 Problem Notes None recorded. Procedures Surgical History Date Name Laterality Status Provider Name and Address Organization Details Recorded Time 03/23/20 24 colonoscopy completed Jass Ochoa [place] [facility] 05/06/2024 14:13:34 Appendectomy completed Jass Ochoa [place] [facility] 01/30/2024 10:17:40 tonsilectomy/cheyanne noids completed Jass Ochoa [place] [facility] 01/30/2024 10:17:53 excision of hydrocele completed DENYS Severino - [facility] 01/30/2024 10:17:58 Knee Surgery completed DENYS Severino - [facility] 01/30/2024 10:18:08 Imaging Results None recorded. Procedure Notes None recorded. Medical Equipment None Reported. Allergies No known drug allergies Medications Name Sig Start Date Stop Date Status Note LastModified by Organization Details LastModified Time azithromyci n 250 mg tablet FOLLOW [employer] ONS active Not Available Not Available No t Available benzonatate 200 mg capsule 01/29 completed Not Available Not Available Not Available promethazin e 6.25 mg/5 mL oral syrup 01/29 completed Not Available Not Available Not Available prednisone 20 mg tablet 01/29 completed Not Available Not Available Not Available diclofenac 0.1 % eye drops INSTILL 1 DROP IN EACH EYE EVERY 8 HOURS active Not Available Not Available No t Available diclofenac sodium 75 mg tablet,santo yed release TAKE 1 TABLET BY MOUTH TWICE DAILY NEEDED FOR PAIN OR SORE THROAT OR SINUS INFLAMMAT ION active Not Available Not Available No t Available ergocalcife rol (vitamin D2) 1,250 mcg (50,000 unit) capsule TAKE 1 CAPSULE BY MOUTH EVERY WEEK 01/29 completed Not Available Not Available Not Available albuterol sulfate HFA 90 mcg/actuati on aerosol inhaler INHALE 2 PUFFS BY MOUTH FOUR TIMES DAILY NEEDED FOR SHORTNESS OF BREATH OR WHEEZING 05/06 completed Not Available Not Available Not Available ipratropium bromide 42 mcg (0.06 %) nasal spray USE 2 SPRAYS IN EACH NOSTRIL FOUR TIMES DAILY FOR 4 DAYS active Not Available Not Available No t Available amoxicillin 875 mg-potassiu m clavulanate 125 mg tablet TAKE 1 TABLET BY MOUTH EVERY 12 HOURS 05/06 completed Not Available Not Available Not Available vitamin E active otc Not Available Not Lala ilable Not Available famotidine active otc Not Available Not Av ailable Not Available Zyrtec 05/06 completed otc Not Available Not Available Not Available B12 active otc Not Available Not Availa ble Not Available Vitals Date Recorded Body height Body mass index (BMI) Body weight Oxygen saturation Heart rate Respiratory rate Systolic And Diastolic Provider Name and Address Organization Details Last Updated DateTime 5 175.26 cm 35.9 kg/m2 280586. 95 g 98 % 80 /min 18 /min 122/82 mm[Hg] Jass Ochoa [place] - [facility] 5 14:15:18 Date Recorded Systolic And Diastolic Provider Name and Address Organization Details Last Updated DateTime 01/30/2024 118/80 mm[Hg] STAS Dias Attn: [facility], [place], [address], [facility] 01/30/2024 10:55:06 Date Recorded Body weight Respiratory rate Body mass index (BMI) Body height Oxygen saturation Heart rate Systolic And Diastolic Provider Name and Address Organization Details Last Updated DateTime 194241. 72 g 18 /min 36.3 kg/m2 175.26 cm 98 % 80 /min 130/82 mm[Hg] Jass Ochoa MA [facility] 10:20:14 Social History Question Answer Notes LastModified by Organizat ion Details LastModified Time Tobacco Smoking Status Never Smoker Jass Ochoa MA null, [facility] 01/30/2024 10:15:54 Are You Blind Or Do You Have Difficulty Seeing? Yes Yes In Right Ear Information not available 01/30/2024 What Is Your Level Of Caffeine Consumption? Occasional Information not available 01/30/2024 In The 14 Days Before Symptom Onset, Have You Had Close Contact With A Laboratory-confir med COVID-19 While That Case Was Ill? No Information not available 01/30/2024 In The 14 Days Before Symptom Onset, Have You Had Close Contact With A Person Who Is Under Investigation For COVID-19 While That Person Was Ill? No Information not available 01/30/2024 Have You Been To An Area Known To Be High Risk For COVID-19? No Information not available 01/30/2024 Are You Deaf Or Do You Have Serious Difficulty Hearing? No Information not available 01/30/2024 What Type Of Diet Are You Following? REGULAR Information not available 01/30/2024 Are There Any Guns Present In Your Home? No Information not available 01/30/2024 What Was The Date Of Your Most Recent Tobacco Screening? 05/06/2024 Information not available 05/06/2024 What Is Your Relationship Status? Information not available 01/30/2024 Do You Use Your Seat Belt Or Car Seat Routinely? Yes Information not available 01/30/2024 Do You Have Smoke And Carbon Monoxide Detectors In Your Home? Yes Information not available 01/30/2024 Do You Use Sunscreen Routinely? No Only Super Green Lotion When It Does Information not available 01/30/2024 Has Tobacco Cessation Counseling Been Provided? No Information not available 01/30/2024 Sex: Male Functional Status Question Answer Note LastModified by Organizat ion Details LastModified Time Do you use any illicit or recreational drugs? No Information not available 01/30/2024 Do you or have you ever used any other forms of tobacco or nicotine? No Information not available 01/30/2024 What is your level of alcohol consumption? Occasional rare Information not available 01/30/2024 Are you able to care for yourself independently? Yes Information not available 01/30/2024 What is your exercise level? None Information not available 01/30/2024 Mental Status Question Answer Note LastModified by Organization D etails LastModified Time Do you feel stressed (tense, restless, nervous, or anxious, or unable to sleep at night)? [id number] Information not available 01/30/2024 Family History Relationship Description Onset Age of this Age Resolved Age Notes LastModified by Organization Details LastModified Time Mother Diabetes mellitus [email or web address] Not available 2023 10:14:59 Father Leukemia [email or web address] Not availabl e 01/30/2024 11:13:46 Medical History Condition Response Coronary Artery Disease N Other N Atrial Fibrillation N High Blood Pressure N Depression N COPD N Blood Clots N Anxiety Disorder N Muscle, Joint, or Bone Problems N Acid Reflux (GERD) Y Cancer N Stroke N Headaches N Kidney or Bladder Problems N Have you had a mammogram in the last yea r? N Skin Problems N Asthma N Allergies N Have you had a PSA blood test in the las t year? N Hepatitis N High Cholesterol N Liver Disease N Thyroid Problems N GI Problems N Anemia N Heart Attack ([place]) N Diabetes N Seizures/Epilepsy N Have you had a colonoscopy in the last 1 0 years? N Heart Failure N Osteoporosis N Past Encounters Encounter ID Performer Location Encounter Start Date Encounter Closed Date Diagnosis/Indication Diagnosis SNOMED-CT Code Diagnosis ICD10 Code Diagnosis IMO Codes Diagnosis Note [id number] Soto Rehman MD [facility] [facility] [address] [place] [address] 01/30/2024 10:07:53 01/30/2024 14:40:57 Body mass index 30+ - obesity 229840254 Z68.36 Fasting lipid panel ordered. BMI is 36.3 Obesity 085419079 E66.9 discussed healthy diet, exercise, controllin g carbohydra aries and added sugars in the diet Adult heal th examination 816601356 Z00.00 Annual wellness exam completed with fasting labs ordered to include CBC and CMP Bilateral hearing loss 34239186 H91.93 Refer to audiology for formal hearing evaluation bilaterall y Recurrent sinusitis [address] of the sinuses without contrast and refer to Ear Nose and Throat for more evaluation . Parietal headache 656215 002 R51.9 Patient reports nearly a daily parietal area headache. We will await CT of the sinuses without contrast to see if anything could be related to sinus involvemen t. Cholesterol screening 27 7847704 Z13.220 Fasting lipid panel ordered Diabetes m ellitus screening 902723804 Z13.1 A1c screening ordered for annual risk assessment on diabetes Thyroid di sorder screening 548556706 Z13.29 Routine thyroid labs ordered Fatigue 97738140 R53.83 Patient requests testostero ne levels and we will also order B12 and folate [id number] Soto Rehman MD [facility] [employer] [place] [address] [place] [address] 05/06/2024 13:49:55 05/06/2024 14:58:01 Left upper zone pneumonia 446541655 J18.1 Add Z-Christophe therapy to provide atypical coverage of antibiotic after he has completed an Augmentin course. This will also provide coverage for sinuses. We will also repeat a chest x-ray at the beginning of next week to monitor for improvemen t and resolution Anterior rhinorrhea 2483 31788 J34.89 Patient reports an unusual yellowish orange thin watery drainage that happens when leaning forward with a head forward and down. We will continue to monitor this to see if there is resolution of it. Health Concerns Section Related Observation LastModified by Organization Detai ls LastModified Time None Recorded Concern Status LastModified by Organization Details LastModified Time None Recorded Advance Directives Directive None Recorded Payers Insurance Date Sequence Insurance Name Policy Number Policy Summers Covered Member ID Summers Member ID Guarantor Name 05/03/2024 1 [employer] (POS II) [id number] Magdy Egan [id number] Magdy Egan Notes Date Note Type Note Provider Name and Address Organization Details Recorded Time 01/30/2024 text/html Deaf in right ear; he thinks since ; saw pipe recovery specialist 20 + years ago. Would like to see Audiology.He also has sinus issues often and that causes fluid behind ears and hearing muffled even further in his good ear. headaches/parietal location: can be twice a week, sometimes can skip a month. they were severe when he had covid in 2019. This year they are so frequent, increasing in frequency and severity. He is well hydrated, so that is not issue. Pt doesn't drink caffeine normally. He does take caffeine at times to help the headache. Currently unilateral left side. He takes Excederin migraine, if that doesn't help, he takes his 's fioricet, or small soda. He feels he usually wakes up with them. He has gained weight this past year, he does Snore. STAS Dias Attn: Accounting[address] [place], [address], [place] [facility] 02/09/2024 23:32:57 05/06/2024 text/html PneumoniaReporte d by PatientHPIFor context, patient reportsafter respiratory illness. For aggravating factors, patient reportsactivity. For alleviating factors, patient reportson antibiotics: ____. For associated symptoms, patient reportsno shortness of breath,no chest pain/discomfort,no orthopnea,no pnd,no fever,no chills,no cough,no wheezing, andno hemoptysis.Patient is here for follow-up on left upper pneumonia, he has been on Augmentin oral therapy after he had a 4 day hospital stay. They suspected that this was an aspiration pneumonia after he had an aspiration episode during his colonoscopy. He is starting to feel much better, he does not feel back to normal at all but is significantly better. STAS Dias Attn: Accounting,[address] [facility], [place], [address], [facility] 05/06/2024 20:13:39
--- NOTE | 2025-03-02 18:29 | ED.MALEGU ---
HPI - Male Genitourinary General Chief complaint: Urogenital-Male <Jacqueline Khan PA-C - Last Filed: 03/04/25 17:19> Stated complaint: left testicle swollen after vasectomy <Jacqueline Khan PA-C - Last Filed: 03/04/25 17:19> Time Seen by Provider: 03/02/25 18:29 <Jacqueline Khan PA-C - Last Filed: 03/04/25 17:19> Focused HPI: This is a 34 year old male that presents to the ER for testicular pain, swelling. Reports a recent vasectomy, increasing pain, swelling to the left testicle. Vasectomy was performed by Dr. Burgess. GENERAL: Well-appearing, well-nourished, and in no acute distress. HEAD: Normocephalic, atraumatic. CHEST: Clear to auscultation. ?No respiratory distress. HEART: Regular rate and rhythm.? NEURO: ?Alert and oriented x3. Patient screened in triage and initial orders placed.? ?Additional care and disposition to be based upon?diagnostic testing and treatment. <Jacqueline Khan PA-C - Last Filed: 03/04/25 17:19> History of Present Illness HPI Narrative: Agree with the HPI above <Jabari Sherman MD - Last Filed: 03/03/25 03:32> Related Data Home medications: Home Medications ?Medication ?Instructions ?Recorded ?Confirmed ?Last Taken ?Type famotidine 20 mg tablet (Acid 20 mg PO BID 04/09/24 02/11/25 04/22/24 History Controller) guaifenesin 600 mg tablet, 600 mg PO Q12HR PRN cough 02/11/25 02/11/25 Unknown History extended release 12 hr (Mucus Relief ER) multivitamin (One Daily 1 tablet PO DAILY 02/11/25 02/11/25 Unknown History Multivitamin tablet) <CALIXTO Bell Last Filed: 03/04/25 17:19> Allergies/Adverse reactions: Allergies Allergy/AdvReac Type Severity Reaction Status Date / Time No Known Allergies Allergy Verified 03/02/25 18:23 <Jacqueline Khan PA-C - Last Filed: 03/04/25 17:19> Review of Systems Review of Systems: as reviewed above in HPI <Jabari Sherman MD - Last Filed: 03/03/25 03:32> All systems reviewed & are unremarkable except as noted in HPI and below <Jabari Sherman MD - Last Filed: 03/03/25 03:32> [facility] Past Medical History Medical History: Medical History Colon polyp Pneumonia due to COVID-19 virus Post-COVID syndrome COVID-19 Community acquired pneumonia Hydrocele <Jacqueline Khan PA-C - Last Filed: 03/04/25 17:19> Surgical History Surgical History: Surgical History History of tonsillectomy H/O knee surgery <Jacqueline Khan PA-C - Last Filed: 03/04/25 17:19> Family History Family History: Family History Father Leukemia Mother Fibromyalgia <Jacqueline Khan PA-C - Last Filed: 03/04/25 17:19> Social History Social History: Social History Smoking packs per day: 0.25 Smoking cigarettes per day: 5.0 Years smoked: 5 Smoking pack-years: 1.25 Smoking status: Former smoker Tobacco type: cigarettes, e-cigarettes/vaping and smokeless tobacco Smokeless tobacco user: other Second hand tobacco smoke exposure: No Alcohol intake: current Alcohol use details: very rarely Substance use: former Substance use type: marijuana Lack of Transportation: YES Lack of Food: Never True Current Housing: I Have Housing Concerned About Future Housing: YES Difficulty Paying Gas/Electric Bills: YES Difficulty Paying for Meds: YES Currently Unemployed: YES Education: High School Diploma/GED Difficulty w/ Childcare or Family Care: No Living arrangements: with family Gender identity (if verbalized by the patient): Male Spiritual care concerns: No <Jacqueline Khan PA-C - Last Filed: 03/04/25 17:19> Exam Narrative: GENERAL: [Well-appearing, well-nourished, and in no acute distress.] HEAD: [Normocephalic, atraumatic.] EYES: [PERRLA and EOMI.] ENT: Nares clear, no rhinorrhea or epistaxis. Mucous membranes moist. NECK: Supple. CHEST: [Clear to auscultation. No respiratory distress.] HEART: [Regular rate and rhythm]. No murmur heard. [Normal peripheral pulses.] ABDOMEN: Soft, nondistended, no masses : Mild tenderness to palpation of the left testicle, no Scrotal erythema or significant enlargement. Normal scrotal fullness without any distension. Palpated both testicles without any asymmetry or masses. No epididymal pain. No inguinal hernias appreciated. no signs of infection at incision sites, no drainage. EXTREMITIES: Normal range of motion. [No edema.] SKIN: Warm, dry, no rash. NEURO: [No focal deficits]. Alert and oriented [x3.] PSYCH: [Normal mood and affect.] <Jabari Sherman MD - Last Filed: 03/03/25 03:32> Course Vital Signs Vital signs: Vital Signs Temperature 97.6 F 03/02/25 18: Pulse Rate 80 03/02/25 18:25 Respiratory Rate 16 03/02/25 18:25 Blood Pressure 156/94 H 03/02/25 18:25 Pulse Oximetry 100 03/02/25 18:25 Temperature 97.6 F 03/02/25 20:45 Pulse Rate 94 03/02/25 20:45 Respiratory Rate 16 03/02/25 20:45 Blood Pressure 143/83 H 03/02/25 20:45 Pulse Oximetry 96 03/02/25 20:45 <Jacqueline Khan PA-C - Last Filed: 03/04/25 17:19> Vital Signs Temperature 97.6 F 03/02/25 18:25 Pulse Rate 80 03/02/25 18:25 Respiratory Rate 16 03/02/25 18:25 Blood Pressure 156/94 H 03/02/25 18:25 Pulse Oximetry 100 03/02/25 18:25 Temperature 97.6 F 03/02/25 20:45 Pulse Rate 94 03/02/25 20:45 Respiratory Rate 16 03/02/25 20:45 Blood Pressure 143/83 H 03/02/25 20:45 Pulse Oximetry 96 03/02/25 20:45 <Jabari Sherman MD - Last Filed: 03/03/25 03:32> MDM - Male Genitourinary [facility] Narrative Medical decision making narrative: 34 year old male that presents to the ER for testicular pain, swelling. Reports a recent vasectomy, increasing pain, swelling to the left testicle. Vasectomy was performed by Dr. Burgess. Mild tenderness to palpation of the left testicle, no Scrotal erythema or significant enlargement. Normal scrotal fullness without any distension. Palpated both testicles without any asymmetry or masses. No epididymal pain. No inguinal hernias appreciated. no signs of infection at incision sites, no drainage. Ultrasound obtained and shows no signs of torsion or any testicular lesions. No fluid collections. Patient is hemodynamically stable no fever. No signs of active infection. Normal postoperative swelling and pain and as expected for vasectomy. Patient will follow up with his urologist. Has been using ice, compression shorts, Tylenol ibuprofen appropriately. Given return precautions and discharge instructions. <Jabari Sherman MD - Last Filed: 03/03/25 03:32> Medical Records Attestation: I reviewed the patient's medical records. <Jabari Sherman MD - Last Filed: 03/03/25 03:32> Imaging Data Attestation: I personally reviewed and interpreted this imaging study as follows: <Jabari Sherman MD - Last Filed: 03/03/25 03:32> My impression: Impressions Scrotum Ultrasound 03/02/25 19:14 IMPRESSION: 1. No focal intratesticular lesions. Color perfusion of both testes are noted. <Jabari Sherman MD - Last Filed: 03/03/25 03:32> Discharge Plan Discharge Clinical Impression: Post-operative pain Swelling of surgical site Qualifiers: Encounter type: initial encounter Qualified Code(s): T81.89XA - Other complications of procedures, not elsewhere classified, initial encounter <Jacqueline Khan PA-C - Last Filed: 03/04/25 17:19> Patient Disposition: Home <Jacqueline Khan PA-C - Last Filed: 03/04/25 17:19> Condition: Stable <Jacqueline Khan PA-C - Last Filed: 03/04/25 17:19> Instructions: Antibiotic Form <Jacqueline Khan PA-C - Last Filed: 03/04/25 17:19> Additional Instructions: scrotal and testicular ultrasound are normal without any complications. No fluid collections, masses, signs of infection or any injury to the testicle. Follow-up with Urology on outpatient basis. This is likely normal postoperative pain and swelling which can be handled with Tylenol, ibuprofen every 6-8 hours, compression sorts and ice up to 20 minutes at a time. Return with any emergent concerns or worsening symptoms otherwise follow-up with your urologist. <Jacqueline Khan PA-C - Last Filed: 03/04/25 17:19> Patient Language: Nigerien <Jacqueline Khan PA-C - Last Filed: 03/04/25 17:19> Prescriptions: No Action guaifenesin [Mucus Relief ER] 600 mg Tablet Extended Release 12hr 600 mg PO Q12HR PRN (Reason: cough) multivitamin [One Daily Multivitamin] Tablet 1 tablet PO DAILY famotidine [Acid Controller] 20 mg tablet 20 mg PO BID <Jacqueline Khan PA-C - Last Filed: 03/04/25 17:19> Follow-up/Referrals: Betyt,CALIXTO Jose [Primary Care Provider, Unknown] <Jacqueline Khan PA-C - Last Filed: 03/04/25 17:19> Time of Disposition: 20:30 <Jacqueline Khan PA-C - Last Filed: 03/04/25 17:19> 20:30 <Jabari Sherman MD - Last Filed: 03/03/25 03:32>
--- OUTSIDE RECORDS SUMMARY | 2025-03-02 20:39 | XMS_ITS | Clinical Summary ---
Author Organization [facility] Address [address] [address] Phone Care Team Providers Care Senior Research Consultant Name Role Phone Soto Rehman MD Primary Care Provider [phone] Allergies No known active allergies Medications selenium [...] cancer. Assessment & Plan (06/11/2019 9:44 AM DIAMOND SETTER APPRENTICE): Colonoscopy Maternal great grandfather had colon cancer and he in his 50s. Maternal great grandmother had colon cancer Irritable bowel syndrome with constipation 07/23 Assessment & Plan (06/11/2019 9:53 AM DIAMOND SETTER APPRENTICE): Stay hydrated. Colonoscopy Linzess 290mcg daily causes him to be sleepy. Give samples of linzess 145mcg daily and linzess 72mcg daily. Take on an empty stomach and wait 30min before having breakfast. Add metamucil 1 tablespoonful daily. Assessment & Plan (05/21/2019 10:21 AM DIAMOND SETTER APPRENTICE): New rx given today and instructed on [...] 08/29/2017 Assessment & Plan (06/11/2019 9:36 AM DIAMOND SETTER APPRENTICE): Avoid provocative foods: citrus, alcohol, coffee, chocolate, mints. Avoid smoking. Maintain a healthy weight. Eat smaller meals, no eating three hours prior to bedtime. Assessment & Plan (06/30/2018 4:03 PM CDT): Continue present meds and f/u 6 months Assessment & Plan (05/15/2018 1:57 PM DIAMOND SETTER APPRENTICE): Avoid provocative foods: citrus, alcohol, coffee, chocolate, [...] (06/11/2019): Added automatically from request for surgery [id number] BMI 30.0-30.9,adult 05/21/2019 03/21/20 21 Assessment & Plan (06/11/2019 9:36 AM DIAMOND SETTER APPRENTICE): Maintain a healthy weight Assessment & Plan (05/21/2019 10:21 AM DIAMOND SETTER APPRENTICE): Pt has been advised on diet Contact [...] 03/21/2021 Assessment & Plan (05/15/2018 2:14 PM DIAMOND SETTER APPRENTICE): EGD with biopsies for H pylori and to exclude peptic ulcer disease Hydrogen lactulose breath testing in future to check for small intestinal bacterial overgrowth. Check Vitamin D Check TTG IgA Nausea and vomiting in adult patient 05/15/2018 03/21/2021 Assessment & Plan (05/15/2018 2:01 PM DIAMOND SETTER APPRENTICE): Check TTG IgA EGD with biopsies for H pylori and to exclude peptic ulcer disease Epigastric abdominal pain 05/15/2018 Assessment & Plan (05/15/2018 2:01 PM DIAMOND SETTER APPRENTICE): EGD CBC, CMP, amylase and lipase Thumb [...] on file Legal Sex Male 3:24 AM DIAMOND SETTER APPRENTICE Gender Identity Male 03/21/2021 6:54 AM DIAMOND SETTER APPRENTICE Sexual Orientation Straight 03/21/2021 6: 54 AM DIAMOND SETTER APPRENTICE Last Filed Vital Signs Vital Sign Reading [...] patient's age to complete this topic Insurance [facility] CHO[facility] PLUS [facility] [place] [address] [place] [address] HMO [facility] HMO/PPO Address: [facility] [id number] [place] [address] [facility] CHOICE PLUS [address] HMO [facility] H[facility] * Guarantor: [facility] Account Type Relation to Patient Date of Phone Billing Address Donor Other Advance Directives For more information, please contact: [phone] * Full Code (Latest Code Status on File) Date Activated Date Inactivated Comments 05/28/2018 7:50 AM 05/28/2018 1:55 PM Care Teams Senior Research Consultant Relationship Specialty Start Date End Date Soto Rehman MD PCP - General Internal Medicine 11/16/23
--- OUTSIDE RECORDS SUMMARY | 2025-03-02 20:39 | XMS_ITS | Data Portability ---
Author Organization [place] - [facility], Main Office Address [address] [place] [address] Assessment No assessment recorded. Plan of Treatment Reminders Order Date Submit Date Provider Last Modified By Organization Details Last Modified Time Details Appointments None recorded. Lab lipid panel, serum 2022 023 [email or web address] [facility], [address], [place], [address], 4 12:01:42 Referral None recorded. Procedures None recorded. Surgeries None recorded. Imaging CT, angiogram, chest, w/ contrast - Per [facility] no auth required case#[id number] 2022 023 [facility] (Imaging), [facility] [address], [place], [address], 3 14:11:03 Medication Orders amoxicillin 875 mg-potassiu m clavulanate 125 mg tablet 2022 023 [id number], [address], [place], [phone], 3 10:19:10 ergocalcife rol (vitamin D2) 1,250 mcg (50,000 unit) capsule 2022 023 [facility] #[id number], [address], [place], [phone], 3 10:19:11 Symbicort 80 mcg-4.5 mcg/actuati on HFA aerosol inhaler 2022 023 [id number], [address] [place], [place], [phone], 3 10:19:10 Patient TargetsNo targets recorded. Patient InstructionsNo instructions recorded. Reason for Referral None Reported. Results Created Date Observation Date Name Description Value Unit Range Abnormal Flag Note LastModifiedBy Organization Detail LastModifiedTime 07/04/1907/03/2022 CT, angio gram, chest , w/ contr ast No observ ation record ed. [address], [place], [address], 07/03/2022 23:36:34 Result Notes None recorded. Problems Name Problem SNOMED Code Status Onset Date Resolution Date Notes Provider Name and Address Organization Details Recorded Time Vitamin D deficiency 26437501 Active 2022 Not Available [facility] 3 01:47:47 Acid reflux 185141611 Active 2022 SUSAN Parry, [place] 3 14:14:57 Acute left otitis media 654061893 Active 2022 STAS Dias [address], [address], [place], [address] , [facility] 3 10:17:44 Reactive airway disease 082075653977 Active 2022 STAS Dias [address], [address], [place], [address] , [facility] 3 10:17:48 Hyperlipid emia 82906656 Active 2022 STAS Dias [address], [address], [place], [address] , [facility] 3 10:17:58 Dyspnea 717819018 Active 2022 STAS Dias [address], [address], [place], [address] , [facility] 3 09:41:20 Pleuritic pain 0318018 Active 2022 STAS Dias [address] [facility], [address], [place], [address] , [facility] [employer] [facility] 3 09:41:28 Difficulty taking deep breaths 066609807 Active 2022 STAS Dias [address] [facility], [place], [address] , [facility] [employer] [facility] 3 09:41:37 Upper respirator y infection 56841966 Active 2022 STAS Dias [address] [facility], [place], [address] , [facility] 3 16:31:11 Problem Notes None recorded. Procedures Surgical History Date Name Laterality Status Provider Name and Address Organization Details Recorded Time 04/08/19 19 Colonoscopy completed Not Available [facility] 06/08/19 01:47:27 04/08/19 06 repair of meniscus completed Not Available [facility] 06/07/2022 01:47:27 repair of hydrocele completed Not Available [facility] 06/07/2022 01:47:27 Appendectomy completed Not Available [facility] 06/07/2022 01:47:27 Tonsillectomy completed Not Available [facility] 06/07/2022 01:47:27 Imaging Results None recorded. Procedure Notes None recorded. Medical Equipment None Reported. Allergies No known drug allergies Medications Name Sig Start Date Stop Date Status Note LastModified by Organization Details LastModified Time azithromyci n 250 mg tablet TAKE 2 TABLETS BY MOUTH FOR 1 DAY THEN TAKE 1 TABLET BY MOUTH DAILY FOR 4 DAYS DIRECTED 05/25 completed Not Available Not Available Not Available hydrocodone 5 mg-acetamin ophen 325 mg tablet TAKE 1 TABLET BY MOUTH EVERY 6 HOURS NEEDED FOR PAIN 05/25 completed Not Available Not Available Not Available famotidine 40 mg tablet 05/25 completed Not Available Not Available Not Available prednisone 20 mg tablet TAKE 3 TABLETS BY MOUTH EVERY DAY FOR 5 DAYS 05/24 completed Not Available Not Available Not Available metronidazo le 500 mg tablet 05/24 completed Not Available Not Available Not Available famotidine 20 mg tablet 1 tab daily active Not Available Not Available No t Available benzonatate 100 mg capsule TAKE 1 CAPSULE BY MOUTH EVERY 8 HOURS NEEDED 05/25 completed Not Available Not Available Not Available nortriptyli ne 10 mg capsule 05/25 completed Not Available Not Available Not Available fluvoxamine 50 mg tablet 05/25 completed Not Available Not Available Not Available ergocalcife rol (vitamin D2) 1,250 mcg (50,000 unit) capsule TAKE 1 CAPSULE BY MOUTH EVERY WEEK active Not Available Not Available No t Available albuterol sulfate HFA 90 mcg/actuati on aerosol inhaler INHALE 2 PUFFS BY MOUTH EVERY 4 HOURS NEEDED 05/25 completed Not Available Not Available Not Available ondansetron 4 mg disintegrat ing tablet DISSOLVE 1 TABLET ON THE TONGUE EVERY 4 HOURS NEEDED FOR NAUSEA OR VOMITING 05/24 completed Not Available Not Available Not Available amoxicillin 875 mg-potassiu m clavulanate 125 mg tablet TAKE 1 TABLET BY MOUTH TWICE DAILY active Not Available Not Available No t Available Symbicort 80 mcg-4.5 mcg/actuati on HFA aerosol inhaler INHALE 2 PUFFS BY MOUTH TWICE DAILY 2022 active Not Available Not Available Not Avai lable Vitals Date Recorded Body mass index (BMI) Body height Oxygen saturation Heart rate Body temperature Body weight Systolic And Diastolic Provider Name and Address Organization Details Last Updated DateTime 3 33.2 kg/m2 175.26 cm 97 % 68 /min 98 [degF] 651206. 28 g 126/70 mm[Hg] Not Available [facility] 3 01:47:32 Date Recorded Body height Body temperature Body mass index (BMI) Body weight Respiratory rate Oxygen saturation Heart rate Systolic And Diastolic Provider Name and Address Organization Details Last Updated DateTime 3 175.26 cm 97.2 [degF] 33.3 kg/m2 750702. 08 g 16 /min 98 % 91 /min 118/70 mm[Hg] SUSAN Parry [place] [facility] 3 09:50:28 Date Recorded Body height Body weight Body temperature Heart rate Oxygen saturation Systolic And Diastolic Provider Name and Address Organization Details Last Updated DateTime 3 175.26 cm 907929. 69 g 97.6 [degF] 84 /min 99 % 118/74 mm[Hg] Neema Harper RN [facility] 09:32:28 Social History Question Answer Notes LastModified by Organizat ion Details LastModified Time Tobacco Smoking Status Former Smoker SUSAN Parry null, [facility] [employer] 06/12/2022 09:38:48 What Is Your Level Of Caffeine Consumption? Moderate 2 Cups Of Coffee Daily [id number] Information not available 06/07/2022 In The 14 Days Before Symptom Onset, Have You Had Close Contact With A Laboratory-confir med COVID-19 While That Case Was Ill? No [email or web address] Information not available 06/12/2022 In The 14 Days Before Symptom Onset, Have You Had Close Contact With A Person Who Is Under Investigation For COVID-19 While That Person Was Ill? No [email or web address] Information not available 06/12/2022 What Type Of Diet Are You Following? REGULAR [email or web address] Information not available 06/12/2022 Have There Been Any Changes To Your Family Or Social Situation? No [email or web address] Information no t available 06/12/2022 When Did You Quit Smoking? 1-5yearssinc elastcigaret te [email or web address] Information not available 06/12/2022 Do You Use Insect Repellent Routinely? No [email or web address] Information not available 06/12/2022 What Was The Date Of Your Most Recent Tobacco Screening? 05/25/2022 [email or web address] Information not available 06/12/2022 Do You Use Protection During Sex? No [email or web address] Information not available 06/12/2022 What Is Your Relationship Status? [id number] Information not available 06/07/2022 Do You Use Your Seat Belt Or Car Seat Routinely? Yes [email or web address] Information not available 06/12/2022 Are You Sexually Active? Yes [email or web address] Information not available 06/12/2022 At What Age Did You Start Smoking Tobacco? 20 [email or web address] Information not available 06/12/2022 Are You Passively Exposed To Smoke? Yes [email or web address] Information no t available 06/12/2022 Do You Use Sunscreen Routinely? Yes Information not available 06/12/2022 Have You Recently Traveled Abroad? No Information not available 06/12/2022 Do You Have Any Dietary Restrictions? No [email or web address] Information not available 06/12/2022 How Many Years Have You Used Smokeless Tobacco? 4 [id number] Information not available 06/07/2022 Sex: Unknown Functional Status Question Answer Note LastModified by Organizat ion Details LastModified Time Do you use any illicit or recreational drugs? No [email or web address] Information not available 06/12/2022 Do you or have you ever used any other forms of tobacco or nicotine? Yes [email or web address] Information not available 06/12/2022 What is your level of alcohol consumption? Occasional [id number] Information not available 06/07/2022 Do you or have you ever used smokeless tobacco? Former smokeless tobacco user [id number] Information not available 06/07/2022 What is your exercise level? Occasional [id number] Information not available 06/07/2022 Mental Status None recorded. Family History Relationship Description Onset Age of this Age Resolved Age Notes LastModified by Organization Details LastModified Time Mother Fibromyalgia [id number].0 [id number] Not available 06/07/2022 01:47:28 Father Leukemia [id number] Not available 06/07/2022 01:47:28 Medical History Condition Response BOWEL PROBLEMS Y HEARTBURN / REFLUX Y GERD/NAUSEA Y Past Encounters Encounter ID Performer Location Encounter Start Date Encounter Closed Date Diagnosis/Indication Diagnosis SNOMED-CT Code Diagnosis ICD10 Code Diagnosis IMO Codes Diagnosis Note [id number] STAS Dias [facility] [place] [address] [place] [address] 05/25/2022 00:00:00 06/03/2022 20:37:53 [id number] STAS Dias [facility] [place] [address] [place] [address] 06/12/2022 09:36:53 06/12/2022 10:20:33 Acute left otitis media 497079446 H66.92 start augmentin 875mg bid course Reactive a irway disease 5629378108 06 J45.909 start short course of low dose symbicort to help with reactive airway flare up from recent respirator y illness Vitamin D deficiency 347 22070 E55.9 vit D 27 on labs. start weekly high dose Rx Hyperlipidemia 58435365 E78.5 146 LDL. diet and exercise modificati ons for step 1 of management of LDL. [id number] STAS Dias [facility] [place] [address] [place] [address] 07/03/2022 09:27:19 07/03/2022 09:54:41 Dyspnea 961055128 R06.00 Onset 8 days ago. send for STAT CTA chest hold and call. Pleuritic pain 0804498 R 07.81 as above, L>R side Difficulty taking deep breaths 352398429 R06.89 as above; pt feels the left side of chest/lung are not able to expand, respiratio ns are with some discomfort and he feels Short of breath Health Concerns Section Related Observation LastModified by Organization Detai ls LastModified Time None Recorded Concern Status LastModified by Organization Details LastModified Time None Recorded Advance Directives Directive None Recorded Payers Insurance Date Sequence Insurance Name Policy Number Policy Summers Covered Member ID Summers Member ID Guarantor Name 07/02/2022 1 [facility] [id number] Magdy Egan [id number] Magdy Egan Notes Date Note Type Note Provider Name and Address Organization Details Recorded Time 3 text/html Ear Pain Brief HPIReported by PatientHPIFor associated symptoms, patient reportssense of fullness/pressureandmuffled hearing. For location, patient reportsleft. For onset/timing, patient reportsnew onset. For duration, patient reportsconstant pain. For quality, patient reportsno itching,no discharge from the ears, andno burning. For severity, patient reportsno fever,able to perform daily activities, andno interference with sleep. For context, patient reportsseasonal allergic rhinitis. Generic HPI TemplateReported by PatientPt is here to f/u on his labs. STAS Dias [address] [facility], [address], [place], [address], [place] 07/01/2022 18:45:13 3 text/html Angina/Chest PainReported by PatientHPIFor quality, patient reportssharp. For context, patient reportsexertionalandat rest. For aggravating factors, patient reportsworse with inspiration. For associated symptoms, patient reportschest discomfort,shortness of breath, andexertional dyspnea. For location, patient reportschest (left sided). For severity, patient reportsmoderate. For duration, patient reportslasts seconds (last during respiration time period). For onset/timing, patient reportsoccurs daily,multiple times per day, andabrupt onset without warning. Generic HPI TemplateReported by PatientHPIFor quality, (easily short of breath). For duration, (worse over the last couple weeks). For onset/timing, (pneumonia 1 year ago). For context, (random, trouble taking deep breath). STAS Dias [address] [facility], [place], [address], [place] 07/03/2022 09:46:25
--- OUTSIDE RECORDS SUMMARY | 2025-03-02 20:39 | XMS_ITS | Clinical Summary ---
Author Organization [facility] Address [address] [facility] [address] [address] [place] [address] Care Team Providers Care Dog Daycare Provider Name Role Phone Ronald Caldwell MD Primary Care Provider Eugene graff Source Comments [facility],non-owned Affiliates and Associated Physician Practices is amultiple site organization consisting of ambulatory clinics and hospital sitesin [place], [place], [place] and [place]. This disclosure is being madepursuant to the Care Everywhere program and may not contain all information available regarding this patient. 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
[2025-03-02 20:45] VITALS: BP 143/83; PULSE 94; RESP 16; TEMP 36.4; O2SAT 96
== END 2025-03-02 20:46 | disposition home or self-care (01) ==
LOC: ANHED 20:37
PROVIDERS: Emergency Provider Student in an Organized Health Care Education/Training Program; PCP Physician Assistant
DX: G89.18 Other acute postprocedural pain (principal); T81.89XA Other complications of procedures, not elsewhere classified, initial encounter; Y84.8 Other medical procedures as the cause of abnormal reaction of the patient, or of later complication, without mention of misadventure at the time of the procedure; N50.812 Left testicular pain
CPT/HCPCS: 76870; 93976; 99284